=== PATIENT | female | born 1990 | race American Indian/Alaskan Native ===

== ENCOUNTER 2016-12-12 12:21 | Emergency (ER) | payer SELFPAY ==
[~2016-12-12] VITALS: Ht 167.6 cm; Wt 108.9 kg
--- NOTE | 2016-12-12 13:44 | ED Cough/URI ---
General Chief Complaint: Coughing up blood Stated Complaint: SOA COUGHING UP BLOOD Nursing Triage Note: PT CO HAS BRONCHITIS SINCE JUL, HAS STARTED COUGHING UP SOME SPUTUM W SPECKS OF BLOOD, AND 1 BLOOD CLOT. History of Present Illness Time seen by provider: 12:50 Initial Comments Evaluation for cough since July 2016, she was treated 2 weeks ago with a round of prednisone and had no improvement in her symptoms. She has also tried an albuterol inhaler with no improvement. She does smoke cigarettes, however she has decreased significantly and is only smoking 2-3 per day. No history of chronic respiratory problems: Asthma, pneumonia, tuberculosis, COPD, bronchitis. She has a history of seasonal allergies, however they are usually only in the fall when she is in [place]. She recently moved to [place]. Timing/Duration: intermittent Severity/Quality: productive cough (clear sputum, coarse deep), sputum, blood streaked sputum (had one episode yesterday with small amount of bright red blood , and another episode today.) Prior Episodes/Possible Cause: no prior episodes Associated Symptoms: cough Allergies and Home Medications Allergies Coded Allergies: No Known Drug Allergies (Unverified , 12/12/16) Home Medications Azithromycin 250 Mg Tablet, 250 MG PO UD, #6 TAKE 2 TABLETS ON DAY ONE THEN TAKE 1 TABLET DAILY FOR FOUR MORE DAYS Prescribed by: RUPERT CERON on 12/12/16 1514 Constitutional: no symptoms reported, see HPI EENTM: no symptoms reported, see HPI, No dental problems, No nose congestion Respiratory: see HPI, cough, hemoptysis, No short of breath, No wheezing Cardiovascular: no symptoms reported, see HPI Gastrointestinal: no symptoms reported, see HPI Genitourinary: no symptoms reported, see HPI : No Musculoskeletal: no symptoms reported Skin: no symptoms reported, see HPI Psychiatric/Neurological: No Symptoms Reported, See HPI Hematologic/Lymphatic: No Symptoms Reported, See HPI Immunological/Allergic: no symptoms reported All Other Systems Reviewed Negative Unless Noted: Yes Past Ruglqdm-Qkprte-Thdulb Hx Patient Social History Alcohol Use: Denies Use Recreational Drug Use: No Smoking Status: Current Everyday Smoker Recent Foreign Travel: No Contact w/Someone Who Travel: No Recent Infectious Disease Expo: No Recent Hopitalizations: No Reproductive System : No (IMPLANON) Reviewed Nursing Assessment Reviewed/Agree w Nursing PMH: Yes Physical Exam Vital Signs Vital Sign - Last 12Hours 12/12/16 12:25 Temp 97.5 Pulse 99 Resp 18 B/P (MAP) 125/82 Pulse Ox 99 Capillary Refill : Less Than 3 Seconds General Appearance: WD/WN, no apparent distress HEENT: PERRL/EOMI, normal ENT inspection, TMs normal, pharynx normal, other ( clear postnasal drainage) Neck: non-tender, full range of motion, supple, normal inspection, No lymphadenopathy (R), No lymphadenopathy (L) Respiratory: chest non-tender, lungs clear, normal breath sounds, no respiratory distress, no accessory muscle use Cardiovascular: normal peripheral pulses, regular rate, rhythm, no JVD, no murmur Gastrointestinal: normal bowel sounds, non tender, soft, no organomegaly, no pulsatile mass Extremities: normal range of motion, non-tender, normal inspection, no pedal edema, no calf tenderness, normal capillary refill Neurologic/Psychiatric: no motor/sensory deficits, alert, normal mood/affect, oriented x 3 Skin: normal color, warm/dry Lymphatic: no adenopathy Progress/Results/Core Measures Results/Orders Lab Results Laboratory Tests Test 12/12/16 13:40 Range/Units White Blood Count 11.0 4.3-11.0 10^3/uL Red Blood Count 5.14 4.35-5.85 10^6/uL Hemoglobin 14.3 11.5-16.0 G/DL Hematocrit 42 35-52 % Mean Corpuscular Volume 83 80-99 FL Mean Corpuscular Hemoglobin 28 25-34 PG Mean Corpuscular Hemoglobin Concent 34 32-36 G/DL Red Cell Distribution Width 13.9 10.0-14.5 % Platelet Count 384 130-400 10^3/uL Mean Platelet Volume 10.1 7.4-10.4 FL Neutrophils (%) (Auto) 69 42-75 % Lymphocytes (%) (Auto) 25 12-44 % Monocytes (%) (Auto) 4 0-12 % Eosinophils (%) (Auto) 2 0-10 % Basophils (%) (Auto) 0 0-10 % Neutrophils # (Auto) 7.6 1.8-7.8 X 10^3 Lymphocytes # (Auto) 2.7 1.0-4.0 X 10^3 Monocytes # (Auto) 0.5 0.0-1.0 X 10^3 Eosinophils # (Auto) 0.2 0.0-0.3 10^3/uL Basophils # (Auto) 0.0 0.0-0.1 10^3/uL Erythrocyte Sedimentation Rate 14 0-20 MM/HR Sodium Level 139 135-145 MMOL/L Potassium Level 3.4 L 3.6-5.0 MMOL/L Chloride Level 110 H 98-107 MMOL/L Carbon Dioxide Level 19 L 21-32 MMOL/L Anion Gap 10 5-14 MMOL/L Blood Urea Nitrogen 9 7-18 MG/DL Creatinine 0.65 0.60-1.30 MG/DL Estimat Glomerular Filtration Rate > 60 BUN/Creatinine Ratio 14 Glucose Level 102 70-105 MG/DL Calcium Level 8.9 8.5-10.1 MG/DL Total Bilirubin 0.4 0.1-1.0 MG/DL Aspartate Amino Transf (AST/SGOT) 30 5-34 U/L Alanine Aminotransferase (ALT/SGPT) 41 0-55 U/L Alkaline Phosphatase 77 40-136 U/L Total Protein 7.3 6.4-8.2 G/DL Albumin 4.0 3.2-4.5 G/DL My Orders Orders - RUPERT CERON Chest Pa/Lat (2 View) (12/12/16 13:04) Cbc With Automated Diff (12/12/16 13:04) Comprehensive Metabolic Panel (12/12/16 13:04) Erythrocyte Sedimentation Rate (12/12/16 13:04) Sputum Culture (12/12/16 13:04) Ekg Tracing (12/12/16 13:12) Mycoplasma Antibodies (12/12/16 14:05) Vital Signs/I&O Vital Sign - Last 12Hours 12/12/16 12/12/16 12:25 14:54 Temp 97.5 Pulse 99 99 Resp 18 18 B/P (MAP) 125/82 Pulse Ox 99 99 Blood Pressure Mean: 96 Point of Care Testing Urine -Bedside: Negative Progress Note : Time: 12:50 Progress Note Initial evaluation completed, will get labs, chest x-ray and sputum culture. Will reevaluate after that. 1340 labs essentially normal, Mycoplasma and sputum culture pending, atelectasis versus infiltrates in bilateral lung bases. RESULTS discussed with the patient. Recommended treatment with doxycycline, Mucinex and over-the- counter allergy medicine. 1400 patient reports that the doxycycline is going to be too expensive so we will use azithromycin. ECG Initial ECG Impression Date: Dec 12, 2016 Initial ECG Impression Time: 13:25 Initial ECG Rate: 78 Initial ECG Rhythm: Normal Sinus Initial ECG Intervals: Normal Initial ECG Intervals MO 156, QRS 3100, QT 400, QTc 456. [place], PT 35, QRS 84, T 17. Initial ECG Impression: Normal Initial ECG Comparisson: No Previous ECG Available Comment Reviewed EKG with Dr. Schmidt, agreed with interpretation. Diagnostic Imaging Diagonstic Imaging: Xray Plain Films/CT/US/NM/MRI: chest Comments NAME: ALVIN CHILDS [facility] REC#: [id number] PT STATUS: REG ER : 1990 PHYSICIAN: RUPERT CERON ADMIT DATE: 12/12/16/ER Draft Date of Exam:12/12/16 CHEST PA/LAT (2 VIEW) INDICATION: Cough approximately 6 months. EXAMINATION: Two-view chest 12/12/2016 COMPARISON: None. FINDINGS: The heart is unremarkable. The pulmonary vasculature is congested. There are no infiltrates or effusions. There is no pneumothorax. Mild atelectasis versus infiltrate at the lung bases followup recommended. IMPRESSION: 1. Pulmonary vasculature congestion. 2. Mild atelectasis versus infiltrate at the lung bases followup recommended. Dictated on workstation # [id number] Dict: 12/12/16 1319 Trans: 12/12/16 1356 [facility] [id number] Interpreted by: CINTIA BAEZ MD Electronically signed by: Reviewed: Reviewed by Me Departure Impression Impression: Primary Impression: Cough in adult Additional Impression: Bronchitis Disposition: 01 HOME, SELF-CARE Condition: Improved Departure-Patient Inst. Decision time for Depature: 13:30 Referrals: NO,LOCAL PHYSICIAN (PCP/Family) Primary Care Physician Patient Instructions: Acute Bronchitis, Adult (DC), Cough, Adult (DC), Seasonal Allergies (DC) Add. Discharge Instructions: Increase water intake. Yjpw-ory-clznsdj allergy medicine such as Claritin or Zyrtec take 1 daily. Mucinex one every 12 hours. Complete full prescription of antibiotics. Establish care at [facility] and follow-up in approximately 5-10 days. Return to emergency department for shortness of air, difficulty breathing, chest pain, fevers greater than 101, or new complaints. All discharge instructions reviewed with patient and/or family. Voiced understanding. Scripts Azithromycin (Azithromycin) 250 Mg Tablet 250 MG PO UD, #6 TAB TAKE 2 TABLETS ON DAY ONE THEN TAKE 1 TABLET DAILY FOR FOUR MORE DAYS Prov: RUPERT CERON 12/12/16 Copy Copies To 1: GODWIN EBTHEA MD, AMY ARNP Dec 12, 2016 13:44
[2016-12-12 13:52] LABS: BASOPHILS % (AUTO) 0 % (0-10); EOSINOPHILS # (AUTO) 0.2 10^3/uL (0.0-0.3); EOSINOPHILS % (AUTO) 2 % (0-10); LYMPHOCYTES # (AUTO) 2.7 X 10^3 (1.0-4.0); LYMPHOCYTES % (AUTO) 25 % (12-44); MEAN CORPUSCULAR HEMOGLOBIN 28 PG (25-34); MEAN CORPUSCULAR HGB CONC 34 G/DL (32-36); MEAN CORPUSCULAR VOLUME 83 FL (80-99); MEAN PLATELET VOLUME 10.1 FL (7.4-10.4); MONOCYTES # (AUTO) 0.5 X 10^3 (0.0-1.0); MONOCYTES % (AUTO) 4 % (0-12); NEUTROPHILS # (AUTO) 7.6 X 10^3 (1.8-7.8); NEUTROPHILS % (AUTO) 69 % (42-75); PLATELET COUNT 384 10^3/uL (130-400); RED BLOOD COUNT 5.14 10^6/uL (4.35-5.85); RED CELL DISTRIBUTION WIDTH 13.9 % (10.0-14.5)
--- NOTE | 2016-12-12 13:56 | Diagnostic Imaging Report ---
INDICATION: Cough approximately 6 months. EXAMINATION: Two-view chest 12/12/2016 COMPARISON: None. FINDINGS: The heart is unremarkable. The pulmonary vasculature is congested. There are no infiltrates or effusions. There is no pneumothorax. Mild atelectasis versus infiltrate at the lung bases followup recommended. IMPRESSION: 1. Pulmonary vasculature congestion. 2. Mild atelectasis versus infiltrate at the lung bases followup recommended. Dictated by: Dictated on workstation # [id number]
[2016-12-12 14:09] LABS: ALANINE AMINOTRANSFERASE 41 U/L (0-55); ANION GAP 10 MMOL/L (5-14); ASPARTATE AMINO TRANSFERASE 30 U/L (5-34); BILIRUBIN,TOTAL 0.4 MG/DL (0.1-1.0); BLOOD UREA NITROGEN 9 MG/DL (7-18); BUN/CREATININE RATIO 14; CALCIUM 8.9 MG/DL (8.5-10.1); CARBON DIOXIDE 19 MMOL/L (21-32); CHLORIDE 110 MMOL/L (98-107); CREATININE SERUM 0.65 MG/DL (0.60-1.30); GFR ESTIMATED > 60; GLUCOSE 102 MG/DL (70-105); POTASSIUM 3.4 MMOL/L (3.6-5.0); SODIUM 139 MMOL/L (135-145); TOTAL PROTEIN 7.3 G/DL (6.4-8.2)
[2016-12-12] MEDS ORDERED: MINO100T10 PO (14:15)
[2016-12-12 14:34] LABS: ERYTHROCYTE SEDIMENTATION RATE 14 MM/HR (0-20)
[2016-12-12] MEDS ORDERED: CLAR-19 PO (14:45)
[2016-12-12 14:54] VITALS: BP 125/82
[2016-12-12] MEDS ORDERED: AZIT250T5 PO (15:14)
[2016-12-14 14:33] LABS: MYCOPLASMA IGM IFA ANTIBODY <1:10 (<1:10)
== END 2016-12-12 14:58 | disposition home or self-care (01) ==
LOC: ER 12:26
DX: J40 Bronchitis, not specified as acute or chronic (principal); F17.210 Nicotine dependence, cigarettes, uncomplicated
CPT/HCPCS: 36415; 71020; 80053; 84703; 85025; 85652; 86738; 87070; 87205; 93005

== ENCOUNTER 2017-02-07 23:16 | Emergency (ER) | payer SELFPAY ==
[~2017-02-07] VITALS: Ht 167.6 cm; Wt 108.9 kg
[~2017-02-07 23:16] MED LIST: AZIT250T5 PO; CLAR-19 PO; MINO100T10 PO
[2017-02-08 00:12] LABS: BASOPHILS % (AUTO) 0 % (0-10); EOSINOPHILS # (AUTO) 0.3 10^3/uL (0.0-0.3); EOSINOPHILS % (AUTO) 2 % (0-10); LYMPHOCYTES # (AUTO) 4.4 X 10^3 (1.0-4.0); LYMPHOCYTES % (AUTO) 36 % (12-44); MEAN CORPUSCULAR HEMOGLOBIN 28 PG (25-34); MEAN CORPUSCULAR HGB CONC 33 G/DL (32-36); MEAN CORPUSCULAR VOLUME 84 FL (80-99); MEAN PLATELET VOLUME 10.1 FL (7.4-10.4); MONOCYTES # (AUTO) 0.6 X 10^3 (0.0-1.0); MONOCYTES % (AUTO) 5 % (0-12); NEUTROPHILS % (AUTO) 57 % (42-75); PLATELET COUNT 347 10^3/uL (130-400); RED BLOOD COUNT 4.95 10^6/uL (4.35-5.85); RED CELL DISTRIBUTION WIDTH 13.5 % (10.0-14.5); WHITE BLOOD COUNT 12.3 10^3/uL (4.3-11.0)
[2017-02-08 00:22] LABS: PROTHROMBIN TIME PATIENT 12.4 SEC (12.2-14.7)
[2017-02-08 00:38] LABS: ALANINE AMINOTRANSFERASE 29 U/L (0-55); ANION GAP 9 MMOL/L (5-14); ASPARTATE AMINO TRANSFERASE 21 U/L (5-34); BILIRUBIN,TOTAL 0.3 MG/DL (0.1-1.0); BLOOD UREA NITROGEN 11 MG/DL (7-18); BUN/CREATININE RATIO 14; CALCIUM 9.2 MG/DL (8.5-10.1); CARBON DIOXIDE 22 MMOL/L (21-32); CHLORIDE 108 MMOL/L (98-107); CREATININE SERUM 0.79 MG/DL (0.60-1.30); GFR ESTIMATED > 60; GLUCOSE 101 MG/DL (70-105); MAGNESIUM 2.2 MG/DL (1.8-2.4); POTASSIUM 3.5 MMOL/L (3.6-5.0); SODIUM 139 MMOL/L (135-145); TOTAL PROTEIN 7.3 GM/DL (6.4-8.2)
[2017-02-08 00:46] LABS: MYOGLOBIN SERUM 28.6 NG/ML (10.0-92.0)
--- NOTE | 2017-02-08 01:52 | ED Neurological Problem ---
General Chief Complaint: Neurological Problems Stated Complaint: TINGLING ON L SIDE Nursing Triage Note: left arm,neck,shoulder numbness Nursing Sepsis Screen: No Definite Risk Source: patient Exam Limitations: no limitations History of Present Illness Time seen by provider: 23:44 Initial Comments This 26-year-old young lady presents to the emergency room with vague symptoms of cramping sensation in the left chest radiating to the neck and back of the shoulder. She also developed paresthesias in the left arm. She has had this discomfort in the left chest off and on since 2013. However, the paresthesias are new. Symptoms started at 21:45 after running and walking fast with her family. She also complains of a persistent left frontal headache 1 month. Patient was examined at 23:55 and no measurable neurologic deficits were observed. Patient denies any weakness. Allergies and Home Medications Allergies Coded Allergies: No Known Drug Allergies (Unverified , 12/12/16) Home Medications No Active Prescriptions or Reported Meds Constitutional: no symptoms reported Eyes: No Symptoms Reported Ears, Nose, Mouth, Throat: no symptoms reported Respiratory: no symptoms reported Cardiovascular: no symptoms reported Gastrointestinal: no symptoms reported Genitourinary: no symptoms reported : No (Nexplanon) Musculoskeletal: see HPI Skin: no symptoms reported Psychiatric/Neurological: See HPI Endocrine: No Symptoms Reported Past Bygtokr-Hsetel-Swyxrd Hx Patient Social History Alcohol Use: Denies Use Recreational Drug Use: No Smoking Status: Former Smoker Type Used: Cigarettes 2nd Hand Smoke Exposure: No Recent Foreign Travel: No Contact w/Someone Who Travel: No Recent Infectious Disease Expo: No Recent Hopitalizations: No Immunizations Up To Date Tetanus Booster (TDap): Unknown Seasonal Allergies Seasonal Allergies: No Surgeries HX Surgeries: Yes Surgeries: Section, Gallbladder Respiratory Hx Respiratory Disorders: Yes Respiratory Disorders: Asthma Cardiovascular Hx Cardiac Disorders: No Neurological Hx Neurological Disorders: No Reproductive System : No Genitourinary Hx Genitourinary Disorders: No Gastrointestinal Hx Gastrointestinal Disorders: No Musculoskeletal Hx Musculoskeletal Disorders: Yes (chronic chest spasms) Endocrine Hx Endocrine Disorders: No HEENT HX ENT Disorders: No Cancer Hx Cancer: No Psychosocial Hx Psychiatric Problems: No Integumentary HX Skin/Integumentary Disorder: No Physical Exam Vital Signs Vital Sign - Last 12Hours 02/07/17 23:26 Temp 97.1 Pulse 79 Resp 18 B/P (MAP) 139/40 Pulse Ox 96 O2 Delivery Room Air Capillary Refill : Less Than 3 Seconds General Appearance: WD/WN, no apparent distress, obese HEENT: PERRL/EOMI, normal ENT inspection Neck: supple, normal inspection, other (left posterior musculature tender to palpation) Respiratory: lungs clear, normal breath sounds, no respiratory distress, no accessory muscle use, other (anterior chest wall tender to palpation) Cardiovascular: regular rate, rhythm, no edema, no murmur Gastrointestinal: normal bowel sounds, non tender, soft Extremities: non-tender, normal inspection, no pedal edema, other (tenderness to palpation of the left shoulder) 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, no motor/sensory deficits, alert, normal mood/affect, oriented x 3 Crainal Nerves: normal hearing, normal speech, PERRL Coordination/Gait: normal finger to nose (normal heel to isbell), normal gait Motor/Sensory: no motor deficit, no sensory deficit Skin: normal color, warm/dry, No rash Progress/Results/Core Measures Results/Orders Lab Results Laboratory Tests Test 02/08/17 00:05 Range/Units White Blood Count 12.3 H 4.3-11.0 10^3/uL Red Blood Count 4.95 4.35-5.85 10^6/uL Hemoglobin 13.9 11.5-16.0 G/DL Hematocrit 42 35-52 % Mean Corpuscular Volume 84 80-99 FL Mean Corpuscular Hemoglobin 28 25-34 PG Mean Corpuscular Hemoglobin Concent 33 32-36 G/DL Red Cell Distribution Width 13.5 10.0-14.5 % Platelet Count 347 130-400 10^3/uL Mean Platelet Volume 10.1 7.4-10.4 FL Neutrophils (%) (Auto) 57 42-75 % Lymphocytes (%) (Auto) 36 12-44 % Monocytes (%) (Auto) 5 0-12 % Eosinophils (%) (Auto) 2 0-10 % Basophils (%) (Auto) 0 0-10 % Neutrophils # (Auto) 7.0 1.8-7.8 X 10^3 Lymphocytes # (Auto) 4.4 H 1.0-4.0 X 10^3 Monocytes # (Auto) 0.6 0.0-1.0 X 10^3 Eosinophils # (Auto) 0.3 0.0-0.3 10^3/uL Basophils # (Auto) 0.0 0.0-0.1 10^3/uL Prothrombin Time 12.4 12.2-14.7 SEC INR Comment 1.0 0.8-1.4 Activated Partial Thromboplast Time 31 24-35 SEC Sodium Level 139 135-145 MMOL/L Potassium Level 3.5 L 3.6-5.0 MMOL/L Chloride Level 108 H 98-107 MMOL/L Carbon Dioxide Level 22 21-32 MMOL/L Anion Gap 9 5-14 MMOL/L Blood Urea Nitrogen 11 7-18 MG/DL Creatinine 0.79 0.60-1.30 MG/DL Estimat Glomerular Filtration Rate > 60 BUN/Creatinine Ratio 14 Glucose Level 101 70-105 MG/DL Calcium Level 9.2 8.5-10.1 MG/DL Magnesium Level 2.2 1.8-2.4 MG/DL Total Bilirubin 0.3 0.1-1.0 MG/DL Aspartate Amino Transf (AST/SGOT) 21 5-34 U/L Alanine Aminotransferase (ALT/SGPT) 29 0-55 U/L Alkaline Phosphatase 76 40-136 U/L Myoglobin 28.6 10.0-92.0 NG/ML Troponin I < 0.30 <0.30 NG/ML Total Protein 7.3 6.4-8.2 GM/DL Albumin 4.0 3.2-4.5 GM/DL Serum Test, Qualitative NEGATIVE NEGATIVE My Orders Orders - OG LANE MD Cbc With Automated Diff (02/07/17 23:57) Magnesium (02/07/17 23:57) Ekg Tracing (02/07/17 23:57) Cardiac Profile 1 (02/07/17 23:57) Comprehensive Metabolic Panel (02/07/17 23:57) Myoglobin Serum (02/07/17 23:57) Protime With Inr (02/07/17 23:57) Partial Thromboplastin Time (02/07/17 23:57) O2 (02/07/17 23:57) Monitor-Rhythm Ecg Trace Only (02/07/17 23:57) Saline Lock/Iv-Start (02/07/17 23:57) Hcg,Qualitative Serum (02/07/17 23:57) Ct Head/Cervical Spine Wo (02/08/17 00:41) Chest Pa/Lat (2 View) (02/08/17 00:41) Vital Signs/I&O Vital Sign - Last 12Hours 02/07/17 02/08/17 02/08/17 23:26 00:00 01:57 Temp 97.1 97.1 Pulse 79 68 Resp 18 23 B/P (MAP) 139/40 Pulse Ox 96 96 99 O2 Delivery Room Air Room Air Room Air Blood Pressure Mean: 73 ECG Initial ECG Impression Date: Feb 08, 2017 Initial ECG Impression Time: 00:15 Initial ECG Rate: 62 Initial ECG Rhythm: Normal Sinus Initial ECG Impression: Normal Comment Normal sinus rhythm with no ST elevation or depression. No abnormal intervals or axis deviation. Diagnostic Imaging Diagonstic Imaging: Xray Plain Films/CT/US/NM/MRI: chest Comments Chest x-ray viewed by me. Report not yet available. No acute abnormalities appreciated. Diagonstic Imaging: CT Plain Films/CT/US/NM/MRI: c-spine, head Comments CT head and C-spine viewed by me and [employer] report reviewed. No acute abnormalities appreciated. Departure Impression Impression: Primary Impression: Atypical chest pain Additional Impressions: Paresthesia of left upper limb Headache Qualified Codes: R51 - Headache Disposition: 01 HOME, SELF-CARE Condition: Stable Departure-Patient Inst. Decision time for Depature: 01:51 Referrals: NO,LOCAL PHYSICIAN (PCP/Family) Primary Care Physician Patient Instructions: Headache, Adult (DC), Paresthesias (DC) Add. Discharge Instructions: You may take Tylenol and/or ibuprofen for your pain. Follow-up with your primary care provider. Return to the ER if symptoms worsen. All discharge instructions reviewed with patient and/or family. Voiced understanding. Scripts No Active Prescriptions or Reported Meds OG LANE MD Feb 08, 2017 01:52
[2017-02-08 01:57] VITALS: BP 129/81
--- NOTE | 2017-02-08 08:02 | Diagnostic Imaging Report ---
PROCEDURE: CT head and CT cervical spine without contrast. TECHNIQUE: Multiple contiguous axial images were obtained through the brain and cervical spine without the use of intravenous contrast. Sagittal and coronal reformations through the cervical spine were then performed. INDICATION: Left arm numbness, neck and shoulder numbness and pain. No priors. CT head: There is no intracranial hemorrhage, hydrocephalus, edema, mass, or mass effect. Incidental ventricular variant with cavum septum pellucidum noted. The ventricular system nondilated and nondisplaced. The orbits, sinuses, and calvarium were within normal limits. No evidence for elevation to the intracranial pressures. CT cervical spine: The neck is held in flexion. Given positioning, the alignment is unremarkable in the reconstruction views. Cervical vertebral body statures are normal and no acute or suspicious endplate irregularity. No substantial degree of canal stenosis. No fracture or paravertebral hemorrhage. Visualized pulmonary apices and thoracic inlet unremarkable. IMPRESSION: CT head: Negative. CT cervical spine: Negative. I agree with the preliminary. Dictated by: Dictated on workstation # [id number]
--- NOTE | 2017-02-08 08:17 | Diagnostic Imaging Report ---
INDICATION: Left arm, neck, and shoulder numbness. COMPARISON: 12/12/2016. FINDINGS: 2 views of the chest are obtained. Heart size is normal. The pulmonary vessels appear unremarkable. There is no pneumothorax, mediastinal widening, or pleural fluid demonstrated. The lungs are clear. No acute osseous abnormality is demonstrated. IMPRESSION: No radiographic evidence of an acute cardiopulmonary process. No significant interval change from the prior study. Dictated by: Dictated on workstation # [id number]
== END 2017-02-08 01:56 | disposition home or self-care (01) ==
LOC: EDUNIT# 23:16 → ER 23:18
DX: R07.89 Other chest pain (principal); R20.2 Paresthesia of skin; R51 Headache; J45.909 Unspecified asthma, uncomplicated; Z87.891 Personal history of nicotine dependence; Z87.59 Personal history of other complications of pregnancy, childbirth and the puerperium
CPT/HCPCS: 36415; 70450; 71020; 72125; 80053; 83735; 83874; 84484; 84703; 85025; 85610; 85730; 93005; 93041

== ENCOUNTER 2017-07-15 20:38 | Emergency (ER) | payer SELFPAY ==
[~2017-07-15] VITALS: Ht 167.6 cm; Wt 108.9 kg
[~2017-07-15 20:38] MED LIST changes: +AZIT250T12 PO; -AZIT250T5 PO
[2017-07-15] MEDS ORDERED: RT-ALBUTEROL/IPRATROPIUM 3 ML (DUONEB) VIAL INH ONE (21:00)
--- NOTE | 2017-07-15 21:04 | ED Respiratory ---
General Chief Complaint: Chest Wall/Rib Pain Stated Complaint: CHEST PAIN,UPPER BACK PAIN X1 DAY Nursing Triage Note: CHEST WALL PAIN, WORSE WITH DEEP INSPIRATION. History of Present Illness Time seen by provider: 20:45 Initial Comments 27-year-old female presents for dyspnea, chest wall pain, and neck pain. She reports her symptoms started earlier today. She tried ibuprofen at 1800 with no resolution of her symptoms. She denies a history of asthma, however she has been seen here before for chest wall pain. She does report doing a new aerobic exercise yesterday, similar to jazzercise. She denies an injury while doing it, but reports it's more physical activity than she's done recently. She denies a cough, fever or recent illness. Denies any tobacco use or exposure, they do not have the fireplace at home. Timing/Duration: this morning Severity: mild Prior Episodes/Possible Cause: occasional episodes Modifying Factors: Improves With Rest Associated Symptoms: chest pain/soreness, No cough, No fever/chills, No headache, No lightheadedness, muscle aches, shortness of breath, No wheezing Allergies and Home Medications Allergies Coded Allergies: No Known Drug Allergies (Unverified , 12/12/16) Home Medications No Active Prescriptions or Reported Meds Constitutional: no symptoms reported, see HPI Respiratory: see HPI, short of breath Cardiovascular: see HPI, chest pain All Other Systems Reviewed Negative Unless Noted: Yes Past Iapipwd-Ymojmr-Laeffr Hx Patient Social History Alcohol Use: Rarely Uses Recreational Drug Use: No Smoking Status: Never a Smoker Type Used: Cigarettes Former Smoker, Quit: Dec 03, 2016 2nd Hand Smoke Exposure: No Recent Foreign Travel: No Contact w/Someone Who Travel: No Recent Infectious Disease Expo: No Recent Hopitalizations: No Immunizations Up To Date Tetanus Booster (TDap): Unknown PED Vaccines UTD: Yes Seasonal Allergies Seasonal Allergies: No Surgeries History of Surgeries: Yes Surgeries: Section, Gallbladder Respiratory History of Respiratory Disorde: Yes Respiratory Disorders: Asthma Cardiovascular History of Cardiac Disorders: No Neurological History of Neurological Disord: No Reproductive System : No Genitourinary History of Genitourinary Disor: No Gastrointestinal History of Gastrointestinal Di: No Musculoskeletal History of Musculoskeletal Dis: Yes (chronic chest spasms) Endocrine History of Endocrine Disorders: No HEENT History of HEENT Disorders: No Cancer History of Cancer: No Psychosocial History of Psychiatric Problem: No Integumentary History of Skin or Integumenta: No Blood Transfusions History of Blood Disorders: No Reviewed Nursing Assessment Reviewed/Agree w Nursing PMH: Yes Physical Exam Vital Signs Vital Sign - Last 12Hours 07/15/17 20:40 Temp 98.3 Pulse 73 Resp 16 B/P (MAP) 124/83 (97) Pulse Ox 100 O2 Delivery Room Air Capillary Refill : Less Than 3 Seconds General Appearance: WD/WN, mild distress Eyes: Bilateral Eye Normal Inspection, Bilateral Eye PERRL, Bilateral Eye EOMI HEENT: PERRL/EOMI, normal ENT inspection, TMs normal, pharynx normal Neck: full range of motion, supple, normal inspection, No lymphadenopathy (R), No lymphadenopathy (L), tender lateral (bilateral trapezius), other (no increased pain with trapezius and sternomastoid strength testing, power V/V bilaterally.) Respiratory: lungs clear, no respiratory distress, decreased breath sounds, other (tenderness at the anterior chest wall. More painful with deep inspiration ) Cardiovascular: normal peripheral pulses, regular rate, rhythm, no murmur Gastrointestinal: normal bowel sounds, non tender, soft Extremities: normal range of motion, non-tender, normal inspection, normal capillary refill Neurologic/Psychiatric: no motor/sensory deficits, alert, normal mood/affect, oriented x 3 Skin: normal color, warm/dry Progress/Results/Core Measures Suspected Sepsis Recent Fever Within 48 Hours: No Infection Criteria Present: None New/Unexplained Altered Menta: No Sepsis Screen: No Definite Risk Sepsis Diagnosis: SIRS Temperature:98.3 Pulse: 73 Respiratory Rate: 16 Blood Pressure 124 /83 Mean: 97 Results/Orders My Orders Orders - RUPERT CERON Albuterol/Ipra Inhalation Soln (Duoneb I (07/15/17 21:00) Svn Sm Volume Nebulizer Rt-Rfs (07/15/17 20:54) Ekg Tracing (07/15/17 20:54) Chest Pa/Lat (2 View) (07/15/17 21:21) Urine Bedside (07/15/17 21:23) Acetaminophen Tablet (Tylenol Tablet) (07/15/17 21:24) Cyclobenzaprine Tablet (Flexeril Tablet) (07/15/17 21:24) Rx-Albuterol Inhaler (Rx-Proair) (07/15/17 21:58) Medications Given in ED Current Medications Medications Dose Ordered Sig/Betzy Route Start Time Stop Time Status Last Admin Dose Admin Albuterol/ Ipratropium 3 ml ONCE ONCE INH 07/15/17 21:00 07/15/17 21:01 DC 07/15/17 21:07 3 ML Vital Signs/I&O Vital Sign - Last 12Hours 07/15/17 07/15/17 07/15/17 20:40 21:08 22:07 Temp 98.3 98.1 Pulse 73 70 Resp 16 16 B/P (MAP) 124/83 (97) Pulse Ox 100 98 100 O2 Delivery Room Air Room Air Room Air Capillary Refill : Less Than 3 Seconds Blood Pressure Mean: 97 Progress Note : Time: 20:45 Progress Note Initial evaluation completed, recommended EKG and DuoNeb treatment. Will continue to monitor. 2114 patient reports improvement in her symptoms after the DuoNeb treatment. Will obtain chest x-ray and reevaluate. 2144 patient reports continued improvement in symptoms. Chest x-ray results reviewed with her. Charge planning and return precautions reviewed, all questions answered. ECG Initial ECG Impression Date: Jul 15, 2017 Initial ECG Impression Time: 21:00 Initial ECG Rate: 64 Initial ECG Rhythm: Normal Sinus Initial ECG Intervals: Normal Initial ECG Intervals MI 156, QRS 108, QT 142, QTC 425. [place] P 35, QRS 39, T 23. Initial ECG Impression: Normal Comment EKG reviewed with Dr. Michaud, concurred with interpretation. Diagnostic Imaging Diagonstic Imaging: Xray Plain Films/CT/US/NM/MRI: chest Comments No acute abnormality seen. Will be over read by radiology Reviewed: Reviewed by Me Departure Impression Impression: Primary Impression: Acute chest wall pain Additional Impression: Costochondritis, acute Disposition: HOME, SELF-CARE Condition: Improved Departure-Patient Inst. Decision time for Depature: 22:00 Referrals: NO,LOCAL PHYSICIAN (PCP/Family) Primary Care Physician Patient Instructions: Chest Pain That Is Not Caused by the Heart (DC), Costochondritis (DC) Add. Discharge Instructions: Alternate between Tylenol 650 mg and ibuprofen 800 mg every 4 hours for pain. Use inhaler every 4 hours as needed for shortness breath. Establish care with a primary care provider, follow-up if symptoms are not improving. Return to emergency department if difficulty breathing, fever greater than 101 not Tylenol or ibuprofen, or new problems. All discharge instructions reviewed with patient and/or family. Voiced understanding. Scripts No Active Prescriptions or Reported Meds RUPERT CERON Jul 15, 2017 21:04
[2017-07-15] MEDS ORDERED: ACETAMINOPHEN 500 MG TAB (TYLENOL) PO STA (21:24)
[2017-07-15] MEDS ORDERED: CYCLOBENZAPRINE 10 MG (FLEXERIL) TAB PO STA (21:24)
[2017-07-15] MEDS ORDERED: RX-ALBUTEROL INHALER (PROAIR) 8 GM IH STA (21:58)
[2017-07-15 22:07] VITALS: BP 122/78
--- NOTE | 2017-07-15 22:15 | Diagnostic Imaging Report ---
EXAMINATION: PA and lateral chest. INDICATION: Chest wall pain with inspiration. COMPARISON: Prior study from 02/08/2017. FINDINGS: Interstitial markings appear prominent. The patient also has flattened diaphragm suggesting air trapping. Correlation with any known history of asthma appreciated. There is no focal alveolar infiltrate. There is no effusion. There is no pneumothorax. Heart size and mediastinal contours appear appropriate. There is no evidence of an osseous abnormality. IMPRESSION: Prominent central interstitial markings and hyperinflation. Correlation as to any know history of asthma or smoking appreciated. There is no focal alveolar infiltrate or effusion. Pulmonary vascularity appears normal. Dictated by: Dictated on workstation # [id number]
== END 2017-07-15 22:07 | disposition home or self-care (01) ==
LOC: EDUNIT# 20:38 → ER 20:40
DX: R07.89 Other chest pain (principal); M94.0 Chondrocostal junction syndrome [Tietze]; J45.909 Unspecified asthma, uncomplicated; Z87.891 Personal history of nicotine dependence; Z87.59 Personal history of other complications of pregnancy, childbirth and the puerperium
CPT/HCPCS: 71046; 84703; 93005; 94640

== ENCOUNTER → 2018-01-19 | Outpatient (CLI) | payer OTHER ==
[~2018-01-19] MED LIST changes: +HYDR25CA PO
--- NOTE | 2018-01-19 16:49 | Diagnostic Imaging Report ---
PATIENT HISTORY: PELVIC PAIN. TECHNIQUE: Transabdominal and transvaginal ultrasound of the pelvis. COMPARISON: None. FINDINGS: The uterus appears retroflexed, but normal in size. No focal uterine masses are seen. The endometrium is normal in thickness measuring 3 mm. No significant free fluid is seen. The ovaries are not seen on transabdominal or transvaginal ultrasound bilaterally. There is significant bowel gas shadowing. IMPRESSION: 1. Retroflexed uterus with no uterine masses seen. 2. The ovaries are not seen bilaterally. Dictated by: Dictated on workstation # [id number]
== END ==
LOC: RAD 14:37
PROVIDERS: ATTEND Nurse Practitioner Family
DX: N85.4 Malposition of uterus (principal)
CPT/HCPCS: 76830; 76856

== ENCOUNTER 2018-01-21 18:43 | Emergency (ER) | payer OTHER ==
[~2018-01-21] VITALS: Ht 167.6 cm; Wt 111.1 kg
[~2018-01-21 18:43] MED LIST changes: -HYDR25CA PO
[2018-01-21 19:46] LABS: BASOPHILS % (AUTO) 0 % (0-10); EOSINOPHILS # (AUTO) 0.4 10^3/uL (0.0-0.3); EOSINOPHILS % (AUTO) 4 % (0-10); HEMATOCRIT 43 % (35-52); HEMOGLOBIN 15.2 G/DL (11.5-16.0); LYMPHOCYTES # (AUTO) 3.1 X 10^3 (1.0-4.0); LYMPHOCYTES % (AUTO) 31 % (12-44); MEAN CORPUSCULAR HEMOGLOBIN 31 PG (25-34); MEAN CORPUSCULAR HGB CONC 36 G/DL (32-36); MEAN CORPUSCULAR VOLUME 85 FL (80-99); MEAN PLATELET VOLUME 10.5 FL (7.4-10.4); MONOCYTES # (AUTO) 0.5 X 10^3 (0.0-1.0); MONOCYTES % (AUTO) 5 % (0-12); NEUTROPHILS # (AUTO) 6.1 X 10^3 (1.8-7.8); NEUTROPHILS % (AUTO) 60 % (42-75); PLATELET COUNT 357 10^3/uL (130-400); RED BLOOD COUNT 4.99 10^6/uL (4.35-5.85); RED CELL DISTRIBUTION WIDTH 12.9 % (10.0-14.5); WHITE BLOOD COUNT 10.1 10^3/uL (4.3-11.0)
[2018-01-21 20:05] LABS: FIBRIN DEGRADATION PRODUCTS 0.43 UG/ML (0.00-0.49); PROTHROMBIN TIME PATIENT 12.9 SEC (12.2-14.7)
[2018-01-21 20:07] LABS: ALANINE AMINOTRANSFERASE 31 U/L (0-55); ALBUMIN 4.1 GM/DL (3.2-4.5); ALKALINE PHOSPHATASE 68 U/L (40-136); BILIRUBIN,TOTAL 0.3 MG/DL (0.1-1.0); BUN/CREATININE RATIO 15; CALCIUM 8.9 MG/DL (8.5-10.1); CARBON DIOXIDE 22 MMOL/L (21-32); CHLORIDE 109 MMOL/L (98-107); CREATININE SERUM 0.74 MG/DL (0.60-1.30); GFR ESTIMATED > 60; GLUCOSE 103 MG/DL (70-105); POTASSIUM 3.8 MMOL/L (3.6-5.0); SODIUM 140 MMOL/L (135-145); TOTAL PROTEIN 7.1 GM/DL (6.4-8.2)
--- NOTE | 2018-01-21 20:12 | Diagnostic Imaging Report ---
INDICATION: Chest pain and pressure. COMPARISON: 07/15/2017. EXAMINATION: Frontal and lateral views of the chest were obtained. FINDINGS: Clear lungs, bilaterally. The heart is normal. There is no pneumothorax. Osseous structures are age-appropriate. IMPRESSION: Negative chest. Dictated by: Dictated on workstation # [id number]
[2018-01-21] MEDS ORDERED: hydrOXYzine (ATARAX) 10 MG TAB PO ONE (20:30)
--- NOTE | 2018-01-21 20:32 | ED Respiratory ---
General Chief Complaint: Respiratory Problems Stated Complaint: SOB Nursing Triage Note: PT PRESENTS TO ER WITH COMPLAINT OF SOB. PT STATES THIS IS HER THIRD TIME IN ER WITH THIS COMPLAINT, AND DOES NOT KNOW WHAT IS THE CAUSE. STATES THE SOB IS EVERY OTHER DAY. Source: patient Exam Limitations: no limitations History of Present Illness Date Seen by Provider: Jan 21, 2018 Time Seen by Provider: 19:00 Initial Comments Patient is 27-year-old female who presents to the emergency room with complaints of shortness of breath her entire life. She reports that she's been seen multiple times at multiple facilities for this and they cannot determine the cause. She states that she is short of breath every other day. She states that she's been under a lot of stress and she has a history of untreated anxiety. Timing/Duration: intermittent Prior Episodes/Possible Cause: chronic episodes Associated Symptoms: No chest pain/soreness, No cough, No fever/chills, No lightheadedness; shortness of breath; No sore throat, No wheezing Allergies and Home Medications Allergies Coded Allergies: No Known Drug Allergies (Unverified , 12/12/16) Home Medications Hydroxyzine Pamoate 25 Mg Capsule, 25 MG PO Q6H PRN for ANXIETY Prescribed by: GAURAV RICHARDSON on 01/21/182034 Patient Home Medication List Home Medication List Reviewed: Yes Review of Systems Constitutional: see HPI; No chills, No diaphoresis, No dizziness, No fever Respiratory: see HPI; No cough, No dyspnea on exertion, No orthopnea, No phlegm ; short of breath; No stridor, No wheezing Cardiovascular: see HPI; No chest pain, No edema, No Hx of Intervention, No palpitations, No syncope Psychiatric/Neurological: See HPI, Anxiety, Emotional Problems (stress) Hematologic/Lymphatic: Denies Blood Clots, Denies Easy Bleeding Immunological/Allergic: denies grass allergy All Other Systems Reviewed Negative Unless Noted: Yes Past Mpvhkij-Hiajtg-Zccjfz Hx Past Med/Social Hx: Reviewed Nursing Past Med/Soc Hx Patient Social History Alcohol Use: Denies Use Recreational Drug Use: No Smoking Status: Former Smoker Type Used: Cigarettes Former Smoker, Quit: Dec 03, 2016 2nd Hand Smoke Exposure: No Recent Foreign Travel: No Contact w/Someone Who Travel: No Recent Infectious Disease Expo: No Recent Hopitalizations: No Immunizations Up To Date Tetanus Booster (TDap): Unknown PED Vaccines UTD: Yes Seasonal Allergies Seasonal Allergies: No Past Medical History Surgeries: Yes Section, Gallbladder Respiratory: Yes Asthma Cardiac: No Neurological: No Genitourinary: No Gastrointestinal: No Musculoskeletal: Yes (chronic chest spasms) Endocrine: No HEENT: No Cancer: No Psychosocial: No Integumentary: No Blood Disorders: No Family Medical History Reviewed Nursing Family Hx Physical Exam Vital Signs - First Documented 01/21/18 18:55 Temp 99.4 Pulse 84 Resp 28 B/P (MAP) 116/73 (87) Pulse Ox 99 O2 Delivery Room Air Capillary Refill : Less Than 3 Seconds Height: 5'6.00" Weight: 245lbs. oz. 111.472414jh; BMI Method:Stated General Appearance: WD/WN, no apparent distress Respiratory: chest non-tender, lungs clear, normal breath sounds, no respiratory distress, no accessory muscle use Cardiovascular: regular rate, rhythm, no edema, no gallop, no JVD, no murmur Neurologic/Psychiatric: alert, normal mood/affect, oriented x 3 Skin: normal color, warm/dry Progress/Results/Core Measures Suspected Sepsis Recent Fever Within 48 Hours: No Infection Criteria Present: None New/Unexplained Altered Menta: No Sepsis Screen: No Definite Risk SIRS Temperature:99.4 Pulse: 84 Respiratory Rate: 28 Laboratory Tests 01/21/18 19:35: White Blood Count 10.1 Blood Pressure 116 /73 Mean: 87 Laboratory Tests 01/21/18 19:35: Creatinine 0.74, INR Comment 1.0, Platelet Count 357, Total Bilirubin 0.3 Results/Orders Lab Results Laboratory Tests Test 01/21/18 19:35 Range/Units White Blood Count 10.1 4.3-11.0 10^3/uL Red Blood Count 4.99 4.35-5.85 10^6/uL Hemoglobin 15.2 11.5-16.0 G/DL Hematocrit 43 35-52 % Mean Corpuscular Volume 85 80-99 FL Mean Corpuscular Hemoglobin 31 25-34 PG Mean Corpuscular Hemoglobin Concent 36 32-36 G/DL Red Cell Distribution Width 12.9 10.0-14.5 % Platelet Count 357 130-400 10^3/uL Mean Platelet Volume 10.5 H 7.4-10.4 FL Neutrophils (%) (Auto) 60 42-75 % Lymphocytes (%) (Auto) 31 12-44 % Monocytes (%) (Auto) 5 0-12 % Eosinophils (%) (Auto) 4 0-10 % Basophils (%) (Auto) 0 0-10 % Neutrophils # (Auto) 6.1 1.8-7.8 X 10^3 Lymphocytes # (Auto) 3.1 1.0-4.0 X 10^3 Monocytes # (Auto) 0.5 0.0-1.0 X 10^3 Eosinophils # (Auto) 0.4 H 0.0-0.3 10^3/uL Basophils # (Auto) 0.0 0.0-0.1 10^3/uL Prothrombin Time 12.9 12.2-14.7 SEC INR Comment 1.0 0.8-1.4 Activated Partial Thromboplast Time 31 24-35 SEC D-Dimer 0.43 0.00-0.49 UG/ML Sodium Level 140 135-145 MMOL/L Potassium Level 3.8 3.6-5.0 MMOL/L Chloride Level 109 H 98-107 MMOL/L Carbon Dioxide Level 22 21-32 MMOL/L Anion Gap 9 5-14 MMOL/L Blood Urea Nitrogen 11 7-18 MG/DL Creatinine 0.74 0.60-1.30 MG/DL Estimat Glomerular Filtration Rate > 60 BUN/Creatinine Ratio 15 Glucose Level 103 70-105 MG/DL Calcium Level 8.9 8.5-10.1 MG/DL Total Bilirubin 0.3 0.1-1.0 MG/DL Aspartate Amino Transf (AST/SGOT) 24 5-34 U/L Alanine Aminotransferase (ALT/SGPT) 31 0-55 U/L Alkaline Phosphatase 68 40-136 U/L Total Protein 7.1 6.4-8.2 GM/DL Albumin 4.1 3.2-4.5 GM/DL My Orders Orders - GAURAV RICHARDSON Comprehensive Metabolic Panel (01/21/18 19:14) Cbc With Automated Diff (01/21/18 19:14) Protime With Inr (01/21/18 19:14) Partial Thromboplastin Time (01/21/18 19:14) Fibrin Degradation Products (01/21/18 19:14) Chest Pa/Lat (2 View) (01/21/18 19:14) Saline Lock/Iv-Start (01/21/18 19:14) Monitor-Rhythm Ecg Trace Only (01/21/18 19:14) Hydroxyzine Oral (Atarax Tablet) (01/21/18 20:30) Hydroxyzine Oral (Vistaril Capsule) (01/21/18 20:45) Medications Given in ED Vital Signs/I&O 01/21/18 01/21/18 18:55 21:06 Temp 99.4 99.4 Pulse 84 84 Resp 28 28 B/P (MAP) 116/73 (87) 116/73 (87) Pulse Ox 99 99 O2 Delivery Room Air Capillary Refill : Less Than 3 Seconds Blood Pressure Mean: 87 Progress Note : Progress Note I have seen and evaluated the patient. Given her normal lab findings and normal chest x-ray I think that her symptoms are attributed to stress and anxiety that she's been dealing with for some time. I discussed medication options with the patient and she was hesitant to take anything for her anxiety but she agreed to take Atarax. After the administration of Atarax she did have relief of symptoms and agreed to take a prescription. She agrees for lanes of discharge, return precautions and close follow-up with her primary care physician. Departure Impression Primary Impression: Anxiety Disposition: 01 HOME, SELF-CARE Condition: Stable/Unchanged Departure-Patient Inst. Decision time for Depature: 20:30 Referrals: [facility] (PCP) Primary Care Physician GAURAV NOONAN APRN (Family) Primary Care Physician Patient Instructions: Anxiety, Adult (DC) Add. Discharge Instructions: Take medication as directed. Follow-up with your doctor within 1 week for recheck. Try to avoid stressful situations that could increase her anxiety level. Return back to the emergency room for any worsening symptoms or any concerns as needed. All discharge instructions reviewed with patient and/or family. Voiced understanding. Scripts Hydroxyzine Pamoate (Vistaril) 25 Mg Capsule 25 MG PO Q6H PRN for ANXIETY, #14 CAP Prov: GAURAV RICHARDSON 01/21/18 GAURAV RICHARDSON Jan 21, 2018 20:32
[2018-01-21] MEDS ORDERED: HYDR25CA PO (20:35)
[2018-01-21] MEDS ORDERED: hydrOXYzine (VISTARIL) 25 MG CAP PO ONE (20:45)
[2018-01-21 21:06] VITALS: BP 116/73
== END 2018-01-21 21:06 | disposition home or self-care (01) ==
LOC: EDUNIT# 18:43 → ER 18:44
DX: F41.9 Anxiety disorder, unspecified (principal); J45.909 Unspecified asthma, uncomplicated; Z87.891 Personal history of nicotine dependence; Z87.59 Personal history of other complications of pregnancy, childbirth and the puerperium
CPT/HCPCS: 36415; 71046; 80053; 85025; 85379; 85610; 85730; 93041

== ENCOUNTER 2018-08-29 11:35 | Emergency (ER) | payer OTHER ==
[~2018-08-29] VITALS: Ht 167.6 cm; Wt 113.4 kg
[~2018-08-29 11:35] MED LIST changes: +HYDR25CA PO
--- NOTE | 2018-08-29 12:33 | ED Cough/URI ---
General Chief Complaint: Cough/Cold/Flu Symptoms Stated Complaint: COUGH Nursing Triage Note: Ambulatory to FT-1. Pt reports cough that began as sore throat on Wednesday. Pt now reports coughing up brown mucous. Pt reports that cough has increased pt's back pain. Pt also reports vomiting twice today and three times yesterday. Sepsis Screen: No Definite Risk Source: patient Exam Limitations: no limitations History of Present Illness Date Seen by Provider: Aug 29, 2018 Time Seen by Provider: 12:32 Initial Comments To ER per private vehicle with reports of sore throat, cough productive of brown mucus and posttussive emesis as well as low back pain. Symptoms began Wednesday morning, about 48 hours ago. Timing/Duration: constant Severity/Quality: productive cough Associated Symptoms: cough, fever/chills (no fevers), nasal congestion, nasal drainage Allergies and Home Medications Allergies Coded Allergies: No Known Drug Allergies (Unverified , 12/12/16) Home Medications Hydroxyzine Pamoate 25 Mg Capsule, 25 MG PO Q6H PRN for ANXIETY Prescribed by: GAURAV RICHARDSON on 01/21/182034 Patient Home Medication List Home Medication List Reviewed: Yes Review of Systems Review of Systems Constitutional: see HPI EENTM: no symptoms reported, nose congestion Respiratory: see HPI, cough Cardiovascular: no symptoms reported Genitourinary: no symptoms reported Musculoskeletal: no symptoms reported Skin: no symptoms reported Psychiatric/Neurological: No Symptoms Reported Past Fhtmxlx-Tsvpqh-Jcittu Hx Patient Social History Alcohol Use: Rarely Uses Recreational Drug Use: No Smoking Status: Current Everyday Smoker Type Used: Cigarettes Former Smoker, Quit: Dec 03, 2016 2nd Hand Smoke Exposure: Yes Recent Foreign Travel: No Contact w/Someone Who Travel: No Recent Infectious Disease Expo: No Recent Hopitalizations: No Physical Abuse: No Sexual Abuse: No Immunizations Up To Date Tetanus Booster (TDap): Unknown PED Vaccines UTD: Yes Seasonal Allergies Seasonal Allergies: No Past Medical History Surgeries: Yes Section, Gallbladder Respiratory: Yes Asthma Cardiac: No Neurological: No Last Menstrual Period: Jul 16, 2018 Genitourinary: No Gastrointestinal: No Musculoskeletal: Yes (chronic chest spasms) Endocrine: Yes ("can't regulate thyroid") HEENT: No Cancer: No Psychosocial: No Integumentary: No Blood Disorders: No Physical Exam Vital Signs - First Documented Capillary Refill : Less Than 3 Seconds Height: 5'6.00" Weight: 250lbs. oz. 113.880031bz; BMI Method:Stated General Appearance: WD/WN, no apparent distress Eyes: Bilateral Eye Normal Inspection, Bilateral Eye PERRL, Bilateral Eye EOMI HEENT: PERRL/EOMI, normal ENT inspection, TMs normal, pharyngeal erythema Neck: non-tender, full range of motion Respiratory: no respiratory distress, no accessory muscle use Gastrointestinal: normal bowel sounds, non tender, soft Neurologic/Psychiatric: alert, normal mood/affect, oriented x 3 Skin: normal color, warm/dry Progress/Results/Core Measures Suspected Sepsis Recent Fever Within 48 Hours: No Infection Criteria Present: None New/Unexplained Altered Menta: No Sepsis Screen: No Definite Risk SIRS Temperature:97.3 Pulse: 81 Respiratory Rate: 16 Laboratory Tests 08/29/18 12:25: White Blood Count 8.4 Blood Pressure 117 /69 Mean: 85 Laboratory Tests 08/29/18 12:25: Platelet Count 358 Results/Orders Lab Results Laboratory Tests Test 08/29/18 12:25 Range/Units White Blood Count 8.4 4.3-11.0 10^3/uL Red Blood Count 4.86 4.35-5.85 10^6/uL Hemoglobin 14.3 11.5-16.0 G/DL Hematocrit 43 35-52 % Mean Corpuscular Volume 87 80-99 FL Mean Corpuscular Hemoglobin 29 25-34 PG Mean Corpuscular Hemoglobin Concent 34 32-36 G/DL Red Cell Distribution Width 12.9 10.0-14.5 % Platelet Count 358 130-400 10^3/uL Mean Platelet Volume 9.8 7.4-10.4 FL Neutrophils (%) (Auto) 64 42-75 % Lymphocytes (%) (Auto) 24 12-44 % Monocytes (%) (Auto) 6 0-12 % Eosinophils (%) (Auto) 6 0-10 % Basophils (%) (Auto) 0 0-10 % Neutrophils # (Auto) 5.4 1.8-7.8 X 10^3 Lymphocytes # (Auto) 2.1 1.0-4.0 X 10^3 Monocytes # (Auto) 0.5 0.0-1.0 X 10^3 Eosinophils # (Auto) 0.5 H 0.0-0.3 10^3/uL Basophils # (Auto) 0.0 0.0-0.1 10^3/uL Serum Test, Qualitative NEGATIVE NEGATIVE Micro Results Microbiology 08/29/18 Influenza Types A,B Antigen ([facility]) - Final, Complete My Orders Orders - KIA VALDES APRN Chest Pa/Lat (2 View) (08/29/18 12:25) Cbc With Automated Diff (08/29/18 12:25) Comprehensive Metabolic Panel (08/29/18 12:25) Iv Heplock-Insert (Order) (08/29/18 12:25) Lactated Ringers (Lr 1000 Ml Iv Solution (08/29/18 12:45) Ketorolac Injection (Toradol Injection) (08/29/18 12:45) Influenza A And B Antigens (08/29/18 12:31) Hcg,Qualitative Serum (08/29/18 12:48) Medications Given in ED Current Medications Medications Dose Ordered Sig/Betzy Route Start Time Stop Time Status Last Admin Dose Admin Ketorolac Tromethamine 30 mg ONCE ONCE IVP 08/29/18 12:45 08/29/18 12:46 DC 08/29/18 12:45 30 MG Vital Signs/I&O 08/29/18 08/29/18 12:01 12:01 Temp 97.3 Pulse 81 Resp 16 B/P (MAP) 117/69 (85) Pulse Ox 98 O2 Delivery Room Air Room Air Capillary Refill : Less Than 3 Seconds Blood Pressure Mean: 85 Departure Impression Primary Impression: Influenza Disposition: 01 HOME, SELF-CARE Condition: Stable Departure-Patient Inst. Decision time for Depature: 13:04 Referrals: [facility] (PCP) Primary Care Physician GAURAV NOONAN APRN (Family) Primary Care Physician Patient Instructions: Flu Add. Discharge Instructions: 1. Use xhjh-gap-tfwksax cough medications such as Robitussin DayQuil or NyQuil, follow-up with your doctor later this week. Return to ER for any concerns. Tylenol and Motrin for fever control. Drink plenty of fluids. All discharge instructions reviewed with patient and/or family. Voiced understanding. Work/School Note: Work Release Form Date Seen in the Emergency Department: Aug 29, 2018 Return to Work: Sep 03, 2018 KIA VALDES APRN Aug 29, 2018 12:33
[2018-08-29 12:40] LABS: BASOPHILS % (AUTO) 0 % (0-10); EOSINOPHILS # (AUTO) 0.5 10^3/uL (0.0-0.3); EOSINOPHILS % (AUTO) 6 % (0-10); HEMATOCRIT 43 % (35-52); HEMOGLOBIN 14.3 G/DL (11.5-16.0); LYMPHOCYTES # (AUTO) 2.1 X 10^3 (1.0-4.0); LYMPHOCYTES % (AUTO) 24 % (12-44); MEAN CORPUSCULAR HEMOGLOBIN 29 PG (25-34); MEAN CORPUSCULAR HGB CONC 34 G/DL (32-36); MEAN CORPUSCULAR VOLUME 87 FL (80-99); MEAN PLATELET VOLUME 9.8 FL (7.4-10.4); MONOCYTES # (AUTO) 0.5 X 10^3 (0.0-1.0); MONOCYTES % (AUTO) 6 % (0-12); NEUTROPHILS # (AUTO) 5.4 X 10^3 (1.8-7.8); NEUTROPHILS % (AUTO) 64 % (42-75); PLATELET COUNT 358 10^3/uL (130-400); RED CELL DISTRIBUTION WIDTH 12.9 % (10.0-14.5); WHITE BLOOD COUNT 8.4 10^3/uL (4.3-11.0)
[2018-08-29] MEDS ORDERED: KETOROLAC 30 MG/ML VIAL IVP ONE (12:45)
[2018-08-29] MEDS ORDERED: LACTATED RINGERS 1,000 ML IV SCH (12:45)
[2018-08-29 13:09] LABS: ALANINE AMINOTRANSFERASE 38 U/L (0-55); ALKALINE PHOSPHATASE 73 U/L (40-136); BILIRUBIN,TOTAL 0.4 MG/DL (0.1-1.0); BUN/CREATININE RATIO 12; CALCIUM 8.8 MG/DL (8.5-10.1); CARBON DIOXIDE 24 MMOL/L (21-32); CHLORIDE 108 MMOL/L (98-107); CREATININE SERUM 0.65 MG/DL (0.60-1.30); GFR ESTIMATED > 60; GLUCOSE 89 MG/DL (70-105); POTASSIUM 3.9 MMOL/L (3.6-5.0); SODIUM 139 MMOL/L (135-145); TOTAL PROTEIN 7.2 GM/DL (6.4-8.2)
--- NOTE | 2018-08-29 13:33 | Diagnostic Imaging Report ---
INDICATION: Back pain and productive cough. COMPARISON: Comparison is made with prior examination from 01/21/2018. TECHNIQUE: PA and lateral views were obtained. FINDINGS: The heart size, mediastinal configuration, and pulmonary vascularity are within normal limits. There is no pleural effusion, pneumothorax, or pneumonia. The osseous structures are unremarkable. IMPRESSION: No acute cardiopulmonary abnormality. Dictated by: Dictated on workstation # [id number]
[2018-08-29 13:40] VITALS: BP 115/72
== END 2018-08-29 13:40 | disposition home or self-care (01) ==
LOC: EDUNIT# 11:35 → ER 11:37
DX: J11.1 Influenza due to unidentified influenza virus with other respiratory manifestations (principal); J45.909 Unspecified asthma, uncomplicated; Z87.891 Personal history of nicotine dependence; Z98.890 Other specified postprocedural states
CPT/HCPCS: 36415; 71046; 80053; 84703; 85025; 87804; 96361; 96374

== ENCOUNTER 2018-09-14 09:30 | Emergency (ER) | payer OTHER ==
[~2018-09-14] VITALS: Ht 167.6 cm; Wt 111.1 kg
[2018-09-14] MEDS ORDERED: HYOSCYAMINE 0.125 MG (LEVSIN) TAB SL ONE (10:00)
[2018-09-14 10:10] LABS: BASOPHILS % (AUTO) 0 % (0-10); EOSINOPHILS # (AUTO) 0.1 10^3/uL (0.0-0.3); EOSINOPHILS % (AUTO) 0 % (0-10); HEMATOCRIT 42 % (35-52); HEMOGLOBIN 14.7 G/DL (11.5-16.0); LYMPHOCYTES # (AUTO) 1.9 X 10^3 (1.0-4.0); LYMPHOCYTES % (AUTO) 15 % (12-44); MEAN CORPUSCULAR HEMOGLOBIN 30 PG (25-34); MEAN CORPUSCULAR HGB CONC 35 G/DL (32-36); MEAN CORPUSCULAR VOLUME 84 FL (80-99); MEAN PLATELET VOLUME 10.5 FL (7.4-10.4); MONOCYTES # (AUTO) 0.6 X 10^3 (0.0-1.0); MONOCYTES % (AUTO) 5 % (0-12); NEUTROPHILS # (AUTO) 10.4 X 10^3 (1.8-7.8); NEUTROPHILS % (AUTO) 80 % (42-75); PLATELET COUNT 320 10^3/uL (130-400); RED CELL DISTRIBUTION WIDTH 13.2 % (10.0-14.5)
[2018-09-14 10:23] LABS: ALANINE AMINOTRANSFERASE 33 U/L (0-55); ALKALINE PHOSPHATASE 69 U/L (40-136); BILIRUBIN,TOTAL 0.4 MG/DL (0.1-1.0); BUN/CREATININE RATIO 10; CALCIUM 8.6 MG/DL (8.5-10.1); CARBON DIOXIDE 19 MMOL/L (21-32); CHLORIDE 108 MMOL/L (98-107); CREATININE SERUM 0.63 MG/DL (0.60-1.30); GFR ESTIMATED > 60; GLUCOSE 104 MG/DL (70-105); LIPASE 12 U/L (8-78); POTASSIUM 3.5 MMOL/L (3.6-5.0); SODIUM 137 MMOL/L (135-145); TOTAL PROTEIN 7.3 GM/DL (6.4-8.2)
[2018-09-14 10:36] LABS: BILIRUBIN,URINE NEGATIVE (NEGATIVE); CLARITY,URINE CLEAR; COLOR,URINE YELLOW; GLUCOSE, URINE (UA) NEGATIVE (NEGATIVE); KETONES,URINE NEGATIVE (NEGATIVE); LEUKOCYTE ESTERASE ,URINE 1+ (NEGATIVE); NITRITE,URINE NEGATIVE (NEGATIVE); PH,URINE 6 (5-9); PROTEIN,URINE 2+ (NEGATIVE); UROBILINOGEN,URINE NORMAL (NORMAL)
--- NOTE | 2018-09-14 10:44 | ED Abdominal Pain ---
General Chief Complaint: Abdominal/GI Problems Stated Complaint: SEVERE STOMACH PAIN Nursing Triage Note: PT AMB TO RM 10 WITH COMPLAINT OF LOW ABD PAIN. STATES PAIN STARTED WEDNESDAY. STATES PAIN IS WORSE WHENEVER SHE IS HAVING DIARRHEA. PT STATES SHE HAS HAD YELLOW TO CLEAR DIARRHEA. STATES SHE HAS HX OF IBS. Sepsis Screen: No Definite Risk Source of Information: Patient Exam Limitations: No Limitations History of Present Illness Date Seen by Provider: Sep 14, 2018 Time Seen by Provider: 09:55 Initial Comments This 28-year-old woman presents to the emergency room with complaints of watery diarrhea, intense painful abdominal cramping, and generalized abdominal discomfort. This is the third day of symptoms. She also notes irregular menstrual cycles recently without a period in the last 3 months. She is febrile with a temperature of 101.6. She denies nausea or vomiting. She reports Dr. Aguayo performed lab work on September 12. Patient was seen for influenza on August in this ER. Patient was previously assigned to Vy William at [facility]. However, she is awaiting assignment of a new provider since Vy left. Allergies and Home Medications Allergies Coded Allergies: No Known Drug Allergies (Unverified , 12/12/16) Home Medications Ciprofloxacin HCl 500 Mg Tablet, 500 MG PO BID Prescribed by: OG SERNA on 09/14/18 1333 Hydroxyzine Pamoate 25 Mg Capsule, 25 MG PO Q6H PRN for ANXIETY Prescribed by: GAURAV RICHARDSON on 01/21/182034 Hyoscyamine Sulfate 0.125 Mg Tab.subl, 1-2 TAB SL Q4H PRN for CRAMPS Prescribed by: OG SERNA on 09/14/18 1333 Metronidazole 500 Mg Tablet, 500 MG PO TID Prescribed by: OG SERNA on 09/14/18 1333 Patient Home Medication List Home Medication List Reviewed: Yes Review of Systems Review of Systems Constitutional: see HPI EENTM: No Symptoms Reported Respiratory: No Symptoms Reported Cardiovascular: No Symptoms Reported Gastrointestinal: See HPI Genitourinary: No Symptoms Reported Musculoskeletal: no symptoms reported Skin: no symptoms reported Psychiatric/Neurological: No Symptoms Reported Endocrine: No Symptoms Reported Hematologic/Lymphatic: No Symptoms Reported Past Zryvhkb-Ygfmnu-Zfzjla Hx Past Med/Social Hx: Reviewed and Corrections made Patient Social History Alcohol Use: Occasionally Uses Recreational Drug Use: No Smoking Status: Former Smoker Type Used: Cigarettes Former Smoker, Quit: Dec 03, 2016 2nd Hand Smoke Exposure: Yes Recent Foreign Travel: No Contact w/Someone Who Travel: No Recent Infectious Disease Expo: No Recent Hopitalizations: No Immunizations Up To Date Tetanus Booster (TDap): Unknown PED Vaccines UTD: Yes Seasonal Allergies Seasonal Allergies: No Past Medical History Surgeries: Yes Section, Gallbladder Respiratory: Yes Asthma Cardiac: No Neurological: No : No Reproductive Disorders: Yes Female Reproductive Disorders: Menstrual Problems Genitourinary: No Gastrointestinal: Yes Irritable Bowel Musculoskeletal: Yes (chronic chest spasms) Endocrine: Yes ("can't regulate thyroid") HEENT: No Cancer: No Psychosocial: No Integumentary: No Blood Disorders: No Physical Exam Vital Signs Vital Signs - First Documented 09/14/18 09:35 Temp 101.6 Pulse 99 Resp 20 B/P (MAP) 112/88 (96) Pulse Ox 97 O2 Delivery Room Air Capillary Refill : Less Than 3 Seconds Height/Weight/BMI Height: 5'6.00" Weight: 245lbs. oz. 111.049005bs; BMI Method:Stated General Appearance: WD/WN, mild distress HEENT: PERRL/EOMI, normal ENT inspection Neck: normal inspection Respiratory: lungs clear, normal breath sounds, no respiratory distress, no accessory muscle use Cardiovascular: regular rate, rhythm, no edema, no murmur Gastrointestinal: normal bowel sounds, soft, tenderness (mild generalized tenderness) Extremities: normal inspection, no pedal edema Neurologic/Psychiatric: writer II-XII nml as tested, no motor/sensory deficits, alert, normal mood/affect, oriented x 3 Skin: normal color, warm/dry Focused Exam Lactate Level 09/14/18 12:04: Lactic Acid Level 0.78 Lactic Acid Level Laboratory Tests Test 09/14/18 12:04 Lactic Acid Level 0.78 MMOL/L (0.50-2.00) Progress/Results/Core Measures Results/Orders Lab Results Laboratory Tests Test 09/14/18 09:45 09/14/18 10:30 09/14/18 11:30 09/14/18 12:04 Range/Units White Blood Count 13.0 H 4.3-11.0 10^3/uL Red Blood Count 4.98 4.35-5.85 10^6/uL Hemoglobin 14.7 11.5-16.0 G/DL Hematocrit 42 35-52 % Mean Corpuscular Volume 84 80-99 FL Mean Corpuscular Hemoglobin 30 25-34 PG Mean Corpuscular Hemoglobin Concent 35 32-36 G/DL Red Cell Distribution Width 13.2 10.0-14.5 % Platelet Count 320 130-400 10^3/uL Mean Platelet Volume 10.5 H 7.4-10.4 FL Neutrophils (%) (Auto) 80 H 42-75 % Lymphocytes (%) (Auto) 15 12-44 % Monocytes (%) (Auto) 5 0-12 % Eosinophils (%) (Auto) 0 0-10 % Basophils (%) (Auto) 0 0-10 % Neutrophils # (Auto) 10.4 H 1.8-7.8 X 10^3 Lymphocytes # (Auto) 1.9 1.0-4.0 X 10^3 Monocytes # (Auto) 0.6 0.0-1.0 X 10^3 Eosinophils # (Auto) 0.1 0.0-0.3 10^3/uL Basophils # (Auto) 0.0 0.0-0.1 10^3/uL Sodium Level 137 135-145 MMOL/L Potassium Level 3.5 L 3.6-5.0 MMOL/L Chloride Level 108 H 98-107 MMOL/L Carbon Dioxide Level 19 L 21-32 MMOL/L Anion Gap 10 5-14 MMOL/L Blood Urea Nitrogen 6 L 7-18 MG/DL Creatinine 0.63 0.60-1.30 MG/DL Estimat Glomerular Filtration Rate > 60 BUN/Creatinine Ratio 10 Glucose Level 104 70-105 MG/DL Calcium Level 8.6 8.5-10.1 MG/DL Corrected Calcium 8.6 8.5-10.1 MG/DL Total Bilirubin 0.4 0.1-1.0 MG/DL Aspartate Amino Transf (AST/SGOT) 25 5-34 U/L Alanine Aminotransferase (ALT/SGPT) 33 0-55 U/L Alkaline Phosphatase 69 40-136 U/L C-Reactive Protein High Sensitivity 12.40 H 0.00-0.50 MG/DL Total Protein 7.3 6.4-8.2 GM/DL Albumin 4.0 3.2-4.5 GM/DL Lipase 12 8-78 U/L Serum Test, Qualitative NEGATIVE NEGATIVE Urine Color YELLOW Urine Clarity CLEAR Urine pH 6 5-9 Urine Specific Willet 1.015 L 1.016-1.022 Urine Protein 2+ H NEGATIVE Urine Glucose (UA) NEGATIVE NEGATIVE Urine Ketones NEGATIVE NEGATIVE Urine Nitrite NEGATIVE NEGATIVE Urine Bilirubin NEGATIVE NEGATIVE Urine Urobilinogen NORMAL NORMAL MG/DL Urine Leukocyte Esterase 1+ H NEGATIVE Urine RBC (Auto) 3+ H NEGATIVE Urine RBC 0-2 /HPF Urine WBC 0-2 /HPF Urine Squamous Epithelial Cells 5-10 /HPF Urine Crystals NONE /LPF Urine Bacteria FEW H /HPF Urine Casts NONE /LPF Urine Mucus MODERATE H /LPF Urine Culture Indicated NO Stool Occult Blood Immunoassay POSITIVE H NEGATIVE Lactic Acid Level 0.78 0.50-2.00 MMOL/L My Orders Orders - OG LANE MD Cbc With Automated Diff (09/14/18 10:00) Comprehensive Metabolic Panel (09/14/18 10:00) Hs C Reactive Protein (09/14/18 10:00) Lipase (09/14/18 10:00) Ua Culture If Indicated (09/14/18 10:00) Saline Lock/Iv-Start (09/14/18 10:00) Hcg,Qualitative Serum (09/14/18 10:00) Hyoscyamine Sl Tablet (Levsin Sl Tablet) (09/14/18 10:00) Ct Abdomen/Pelvis W (09/14/18 10:45) Iohexol Injection (Omnipaque 350 Mg/Ml 1 (09/14/18 11:00) Received Contrast (Contrast Received) (09/14/18 11:00) Ns (Ivpb) (Sodium Chloride 0.9% Ivpb Bag (09/14/18 11:00) Ketorolac Injection (Toradol Injection) (09/14/18 11:45) Ciprofloxacin Iv 400mg/200ml (Cipro Iv S (09/14/18 11:45) Blood Culture (09/14/18 11:44) Lactic Acid Analyzer (09/14/18 11:44) Saline Lock/Iv-Start (09/14/18 11:44) Lactated Ringers (Lr 1000 Ml Iv Solution (09/14/18 11:44) Stool Culture (09/14/18 11:44) Fecal Wbc (09/14/18 11:44) C Difficile Ag + Toxin A/B. (09/14/18 11:44) Occult Blood Stool (09/14/18 11:44) Medications Given in ED Current Medications Medications Dose Ordered Sig/Betzy Route Start Time Stop Time Status Last Admin Dose Admin Ciprofloxacin/ Dextrose 200 ml @ 200 mls/hr ONCE ONCE IV 09/14/18 11:45 09/14/18 12:44 DC 09/14/18 12:55 200 MLS/HR Hyoscyamine Sulfate 0.25 mg ONCE ONCE SL 09/14/18 10:00 09/14/18 10:02 DC 09/14/18 10:06 0.25 MG Iohexol 150 ml ONCE ONCE IV 09/14/18 11:00 09/14/18 11:01 DC 09/14/18 11:01 125 ML Ketorolac Tromethamine 15 mg ONCE ONCE IVP 09/14/18 11:45 09/14/18 11:47 DC 09/14/18 12:10 15 MG Lactated Ringer's 1,000 ml @ 0 mls/hr Q0M ONCE IV 09/14/18 11:44 09/14/18 11:48 DC 09/14/18 12:10 1,000 MLS/HR Sodium Chloride 100 ml ONCE ONCE IV 09/14/18 11:00 09/14/18 11:01 DC 09/14/18 11:02 80 ML Vital Signs/I&O 09/14/18 09:35 Temp 101.6 Pulse 99 Resp 20 B/P (MAP) 112/88 (96) Pulse Ox 97 O2 Delivery Room Air Blood Pressure Mean: 96 Progress Progress Note #1: Time: 10:38 Progress Note Patient was seen and assessed. Labs were ordered and reviewed. Patient does have elevated WBC and CRP. This in conjunction with fever which suggest and possible infectious etiology. If patient has another bowel movement, we will collect it and send it for studies. Levsin was given and did help her cramping to some degree. Patient denies ever having any imaging or endoscopy performed for her IBS. We will discuss the potential for imaging now. Progress Note #2: Time: 10:45 Progress Note After discussing risks and benefits of CT scan, patient elects to proceed with CT imaging. We discussed risks that include reaction to contrast dye, cost, and radiation exposure leading to increased cancer risk. Progress Note #3: Time: 11:58 Progress Note Uncomplicated colitis noted on CT scan. Patient will be treated with Cipro, IV fluids, and Toradol. Blood culture will be drawn prior to administration of Cipro as a precaution. We will reassess after administration of these medications to determine if patient can tolerate outpatient therapy or will need admission. Progress Note #4: Time: 13:45 Progress Note Patient's fluids are done and she is nearly done with her Cipro infusion. She is feeling improved enough that she would like to try outpatient therapy. Heart rate is now down to 85. I discussed follow-up with Dr. French who will help make sure a she is able to get a prompt follow-up appointment in the clinic. Diagnostic Imaging Diagonstic Imaging: CT Plain Films/CT/US/NM/MRI: abdomen, pelvis Comments CT abdomen and pelvis viewed by me and report reviewed. See report below: NAME: ALVIN TOBAR [facility] REC#: [id number] PT STATUS: REG ER : 1990 PHYSICIAN: OG LANE MD ADMIT DATE: 09/14/18/ER Draft Date of Exam:09/14/18 CT ABDOMEN/PELVIS W PROCEDURE: CT abdomen and pelvis with contrast. TECHNIQUE: Multiple contiguous axial images were obtained through the abdomen and pelvis after administration of intravenous contrast. INDICATION: Severe abdominal pain for three days and fever. COMPARISON: No prior studies are available for comparison. FINDINGS: The lung bases demonstrate some linear scarring or atelectasis in the right middle lobe and lingula. The liver demonstrates generalized low density consistent with hepatic steatosis. No discrete liver mass is identified. The gallbladder is surgically absent. No biliary duct dilatation is identified. The pancreas and spleen are unremarkable. No adrenal mass is identified. The kidneys are unremarkable. Aorta is non-aneurysmal. There are small lymph nodes in the central retroperitoneum left para-aortic region, nonspecific. Small bowel loops are nondilated. There is questionable generalized bowel wall thickening of the colon versus incomplete distention. Possibility of generalized colitis cannot be excluded. The appendix is unremarkable. No ascites. No fluid collection or free air is seen. The uterus and bladder are unremarkable. No pelvic lymphadenopathy is seen. IMPRESSION: 1. Hepatic steatosis. 2. Findings suspicious for generalized nonspecific colitis versus incomplete distention of the colon. No other significant abnormality is seen. Dictated on workstation # [id number] Dict: 09/14/18 1116 Trans: 09/14/18 1125 [facility] [id number] Interpreted by: JENNIFER STOREY MD Departure Impression Primary Impression: Acute colitis Additional Impression: Acute diarrhea Disposition: 01 HOME, SELF-CARE Condition: Improved Departure-Patient Inst. Referrals: [facility]/ (PCP) Primary Care Physician GAURAV NOONAN APRN (Family) Primary Care Physician Patient Instructions: Diarrhea in Adolescents and Adults Add. Discharge Instructions: Consume a clear liquid diet for the remainder of today. Drink plenty of clear liquids. Gradually advance your diet with small quantities of bland food as tolerated tomorrow. Treat your pain with Tylenol (acetaminophen) up to 1000 mg every 6 hours as needed. For pain not controlled by Tylenol, you may add ibuprofen up to 600 mg every 6 hours as needed. Please have a low threshold for returning to the emergency room or calling your physician if symptoms are worsening. Start your antibiotic today and complete the entire course of antibiotics unless otherwise directed by your doctor. Please follow-up with the [facility] clinic as soon as possible. Please call today for an appointment time. All discharge instructions reviewed with patient and/or family. Voiced understanding. Scripts Hyoscyamine Sulfate (Levsin-Sl) 0.125 Mg Tab.subl 1-2 TAB SL Q4H PRN for CRAMPS, #10 TAB Prov: OG LANE MD 09/14/18 Metronidazole (Flagyl) 500 Mg Tablet 500 MG PO TID, #30 TAB Prov: OG LANE MD 09/14/18 Ciprofloxacin HCl (Cipro) 500 Mg Tablet 500 MG PO BID, #20 TAB Prov: OG LANE MD 09/14/18 Copy Copies To 1: BOBBY FRENCH MD, JOSHUA T MD Sep 14, 2018 10:44
[2018-09-14 10:49] LABS: BACTERIA,URINE FEW /HPF; RBC,URINE 0-2 /HPF; WBC,URINE 0-2 /HPF
[2018-09-14] MEDS ORDERED: NS 100 ML (IVPB) BAG IV ONE (11:00)
[2018-09-14] MEDS ORDERED: RECEIVED CONTRAST 20 ML VIAL IV SCH (11:00)
[2018-09-14] MEDS ORDERED: IOHEXOL 350 MG/ML 150 ML (OMNIPAQUE 350) VIAL IV ONE (11:00)
--- NOTE | 2018-09-14 11:25 | Diagnostic Imaging Report ---
PROCEDURE: CT abdomen and pelvis with contrast. TECHNIQUE: Multiple contiguous axial images were obtained through the abdomen and pelvis after administration of intravenous contrast. INDICATION: Severe abdominal pain for three days and fever. COMPARISON: No prior studies are available for comparison. FINDINGS: The lung bases demonstrate some linear scarring or atelectasis in the right middle lobe and lingula. The liver demonstrates generalized low density consistent with hepatic steatosis. No discrete liver mass is identified. The gallbladder is surgically absent. No biliary duct dilatation is identified. The pancreas and spleen are unremarkable. No adrenal mass is identified. The kidneys are unremarkable. Aorta is non-aneurysmal. There are small lymph nodes in the central retroperitoneum left para-aortic region, nonspecific. Small bowel loops are nondilated. There is questionable generalized bowel wall thickening of the colon versus incomplete distention. Possibility of generalized colitis cannot be excluded. The appendix is unremarkable. No ascites. No fluid collection or free air is seen. The uterus and bladder are unremarkable. No pelvic lymphadenopathy is seen. IMPRESSION: 1. Hepatic steatosis. 2. Findings suspicious for generalized nonspecific colitis versus incomplete distention of the colon. No other significant abnormality is seen. Dictated by: Dictated on workstation # [id number]
[2018-09-14] MEDS ORDERED: LACTATED RINGERS 1,000 ML IV ONE (11:44)
[2018-09-14] MEDS ORDERED: KETOROLAC 30 MG/ML VIAL IVP ONE (11:45)
[2018-09-14] MEDS ORDERED: CIPROFLOXACIN IV 400MG/200ML 200 ML IV ONE (11:45)
[2018-09-14] MEDS ORDERED: METR500T PO (13:33)
[2018-09-14] MEDS ORDERED: CIPR-225 PO (13:33)
[2018-09-14] MEDS ORDERED: HYOS0.1283 SL (13:33)
[2018-09-14 14:19] VITALS: BP 101/68
== END 2018-09-14 14:14 | disposition home or self-care (01) ==
LOC: EDUNIT# 09:30 → ER 09:32
DX: K52.9 Noninfective gastroenteritis and colitis, unspecified (principal); J45.909 Unspecified asthma, uncomplicated; K58.9 Irritable bowel syndrome, unspecified; Z87.448 Personal history of other diseases of urinary system; Z87.891 Personal history of nicotine dependence; Z98.890 Other specified postprocedural states
CPT/HCPCS: 36415; 74177; 80053; 81000; 82274; 83605; 83690; 84703; 85025; 86141; 87015; 87040; 87045; 87046; 87324; 87449; 87899

== ENCOUNTER 2018-10-20 05:38 | Outpatient (CLI) | payer OTHER ==
[~2018-10-20] VITALS: Ht 167.6 cm; Wt 111.1 kg
[~2018-10-20 05:38] MED LIST changes: +CIPR-225 PO; +HYOS0.1283 SL; +METR500T PO
== END 2018-10-20 13:10 | disposition home or self-care (01) ==
LOC: PREOP 05:38
PROVIDERS: ATTEND Surgery
DX: Z01.818 Encounter for other preprocedural examination (principal)

== ENCOUNTER 2018-10-24 10:05 | Day surgery (SDC) | payer OTHER ==
[~2018-10-24] VITALS: Ht 167.6 cm; Wt 111.1 kg
[2018-10-24] MEDS ORDERED: LACTATED RINGERS 1,000 ML IV STA (10:16)
[2018-10-24] MEDS ORDERED: LACTATED RINGERS 1,000 ML IV ONE (10:24)
[2018-10-24] MEDS ORDERED: HURRICAINE EXT TUBE (BENZOCAINE) XX PRN (10:30)
--- NOTE | 2018-10-24 10:48 | Progress Note-Pre Operative ---
Pre-Operative Progress Note H&P Reviewed The H&P was reviewed, patient examined and no changes noted. Time Seen by Provider: 10:46 Date H&P Reviewed: Oct 24, 2018 Time H&P Reviewed: 10:45 Pre-Operative Diagnosis: Gastritis/reflux, diarrhea BRIE HALL DO Oct 24, 2018 10:48
[2018-10-24 11:06] VITALS: BP 99/69
[2018-10-24] MEDS ORDERED: PROPOFOL INJECTION 50 ML IV ONE (11:10)
[2018-10-24] MEDS ORDERED: MIDAZOLAM 2 MG/2 ML (VERSED) VIAL ONE (11:11)
[2018-10-24] MEDS ORDERED: HURRICAINE EXT TUBE (BENZOCAINE) ONE (11:28)
--- NOTE | 2018-10-24 11:57 | Progress Note-Post Operative ---
Post-Operative Progess Note Surgeon (s)/Baby Registry Sales Consultant (s) Surgeon BRIE HALL DO Baby Registry Sales Consultant: none Pre-Operative Diagnosis Gastritis/reflux, diarrhea Post-Operative Diagnosis Gastritis Esophagitis Relaxed pylorus Internal hemorrhoids Procedure & Operative Findings Date of Procedure 10/24/18 Procedure Performed/Findings EGD with bx Colon with bx Anesthesia Type IV sedation by CAREER COACH Estimated Blood Loss Estimated blood loss (mL): scant Specimens/Packing Specimens Removed Antral bx GE jxn bx TI bx BRIE HALL DO Oct 24, 2018 11:57
--- NOTE | 2018-10-24 11:58 | Endoscopy Discharge Instruct ---
Endo Procedure/Findings Findings 1.: Gastritis 2.: Internal Hemorrhoids Discharge Instructions - Activity: You might feel a little sleepy until tomorrow. This is due to the medicine you received to relax you. Until tomorrow, you should: NOT drive a car, operate machinery or power tools. NOT drink any alcoholic beverages. NOT make any important decisions or sign importortant papers. Do not return to work until tomorrow, unless otherwise instructed. Resume previous activities tomorrow. Diet: Start by taking liquids. If you tolerate liquids, advance to solid food. make an appointment for one week Notify Physician - If you experience excessive bleeding, unusual abdominal pain, fever, or chest pain, contact your doctor immediately. Follow-Up: - I have received and understand the above instructions and will call my doctor if I have any further questions. Patient Signature Date Nurse Signature Other (Relationship) BRIE HALL DO Oct 24, 2018 11:58
[2018-10-24 12:05] VITALS: BP 103/55
--- NOTE | 2018-10-24 12:16 | Anesthesia-General Post-Op ---
MAC Patient Condition Mental Status/LOC: Same as Preop Cardiovascular: Satisfactory Nausea/Vomiting: Absent Respiratory: Satisfactory Pain: Controlled Complications: Absent Post Op Complications Complications None Follow Up Care/Instructions Patient Instructions None needed. Anesthesiology Discharge Order Discharge Order Patient is doing well, no complaints, stable vital signs, no apparent adverse anesthesia problems. No complications reported per nursing. DUSTIN TRUJILLO CRNA Oct 24, 2018 12:16
[2018-10-24 12:35] VITALS: BP 110/74
[2018-10-24 12:50] VITALS: BP 110/74
--- NOTE | 2018-10-25 02:27 | OPERATIVE REPORT ---
DATE OF SERVICE: 10/24/2018 PREOPERATIVE DIAGNOSES: Reflux and diarrhea. POSTOPERATIVE DIAGNOSES: 1. Gastritis. 2. Esophagitis. 3. Internal hemorrhoids. PROCEDURE: EGD with biopsy and colonoscopy with cold biopsy. SURGEON: Raimundo Varela DO EMPLOYEE'S REPRESENTATIVE: None. ANESTHESIA: IV sedation by the JOB FOREMAN. SPECIMEN: One biopsy from the stomach and one biopsy from the antrum and then one biopsy from the terminal ileum. BLOOD LOSS: Scant. FLUIDS: Per anesthesia. POSTOPERATIVE CONDITION: Stable. INDICATION FOR PROCEDURE: The patient is a 28-year-old female who has been having some reflux and gastritis and needed a workup as well as some chronic uncontrolled diarrhea needed a colonoscopy. FINDINGS: The patient had some gastritis and some mild esophagitis possibly a very small hiatal hernia and then she had some internal hemorrhoids, but nothing else seen in the colon. PROCEDURE NOTE: After informed consent was obtained, the patient was brought to the endoscopy suite, placed in the bed in left lateral decubitus position. First started with the EGD, placed the scope down the mouth through the esophagus and into the stomach, saw some mild gastritis, took a picture. Pushed in the duodenum, first and second portion of duodenum looked fine. Pulled back into the antrum, took a biopsy of the antrum. I retroflexed the scope, saw small hiatal hernia, but no other pathology. Pulled the scope into the GE junction, saw some mild esophagitis. Pulled the scope up the esophagus, did not see anything else at top of the esophagus and then pulled the scope out. Switched gloves, switched scopes and then started the colonoscopy. Went down below, inserted the scope, pushed all the way about 150 cm, able to get to the cecum, took a picture of appendiceal orifice, noted the ileocecal valve and then slowly withdrew the scope insufflating to look circumferentially at the castle looking at the cecum into the terminal ileum. I elected to do a biopsy in the terminal ileum, cold biopsy and then pulled up the ascending colon to the hepatic flexure, then down the transverse colon, splenic flexure, into the descending colon then down into the sigmoid and finally into the rectum, retroflexed the rectal vault, saw some minimal internal hemorrhoids, took a picture of this and then removed the scope. The patient tolerated procedure. She was recovered in the endoscopy suite. Job ID: [id number] DocumentID: [id number] Dictated Date: 10/24/2018 18:43:46 Supervisor Patching Date: 10/25/2018 02:26:27 Dictated By: RAIMUNDO VARELA DO
== END 2018-10-24 12:50 | disposition home or self-care (01) ==
LOC: ENDO 10:05
PROVIDERS: ATTEND Surgery
DX: K29.50 Unspecified chronic gastritis without bleeding (principal); K21.0 Gastro-esophageal reflux disease with esophagitis; K64.8 Other hemorrhoids; K52.3 Indeterminate colitis; Z80.3 Family history of malignant neoplasm of breast; Z87.891 Personal history of nicotine dependence; F41.9 Anxiety disorder, unspecified; E66.01 Morbid (severe) obesity due to excess calories; Z68.39 Body mass index [BMI] 39.0-39.9, adult
CPT/HCPCS: 84703

== ENCOUNTER 2019-08-09 10:08 | Emergency (ER) | payer OTHER ==
[~2019-08-09] VITALS: Ht 167.7 cm; Wt 113.6 kg
--- NOTE | 2019-08-09 10:16 | ED Cough/URI ---
General Stated Complaint: COUGH;CONGESTION Source: patient Exam Limitations: no limitations History of Present Illness Date Seen by Provider: Aug 09, 2019 Time Seen by Provider: 10:16 Initial Comments 29-year-old female presents with cough and congestion. Patient reports that she's been coughing up a lot of mucus over the last couple days. That now her and daughter have similar symptoms. Patient presents today because she wants to make sure she doesn't have pneumonia. She doesn't report any fevers, nausea, vomiting, chest pain, diarrhea. Patient does have some generalized malaise. Patient reports a cough started about a week ago. Allergies and Home Medications Allergies Coded Allergies: No Known Drug Allergies (Unverified , 12/12/16) Home Medications Benzonatate 100 Mg Capsule, 100 MG PO Q8H PRN for COUGH Prescribed by: REBECCA MARINA on 08/09/19 1142 Ondansetron 4 Mg Tab.rapdis, 4 MG PO Q6H PRN for NAUSEA/VOMITING Prescribed by: REBECCA MARINA on 08/09/19 1142 Patient Home Medication List Home Medication List Reviewed: Yes Review of Systems Review of Systems Constitutional: malaise EENTM: nose congestion; No ear pain, No throat pain Respiratory: cough, phlegm; No short of breath Cardiovascular: No chest pain Gastrointestinal: No abdominal pain, No diarrhea, No nausea, No vomiting Genitourinary: no symptoms reported Musculoskeletal: no symptoms reported Skin: no symptoms reported Psychiatric/Neurological: No Symptoms Reported Hematologic/Lymphatic: No Symptoms Reported Past Bvhikzt-Imqqzr-Fubclu Hx Past Med/Social Hx: Reviewed Nursing Past Med/Soc Hx Patient Social History Type Used: Cigarettes Former Smoker, Quit: Dec 03, 2016 2nd Hand Smoke Exposure: Yes Recent Hopitalizations: No Immunizations Up To Date Tetanus Booster (TDap): Unknown PED Vaccines UTD: Yes Seasonal Allergies Seasonal Allergies: No Past Medical History Surgeries: Yes Section, Gallbladder Respiratory: No Asthma Cardiac: No Neurological: No Reproductive Disorders: Yes Female Reproductive Disorders: Menstrual Problems Genitourinary: No Gastrointestinal: Yes Gastroesophageal Reflux, Irritable Bowel Musculoskeletal: No (chronic chest spasms) Endocrine: Yes ("can't regulate thyroid") HEENT: No Cancer: No Psychosocial: No Integumentary: No Blood Disorders: No Physical Exam Vital Signs - First Documented 2/5/20 10:14 Temp 37.0 Pulse 92 Resp 20 B/P (MAP) 128/86 (100) Pulse Ox 98 O2 Delivery Room Air Capillary Refill : Height: 5'6.00" Weight: 245lbs. 0.0oz. 111.550765kb; 39.5 BMI Method:Stated General Appearance: WD/WN, no apparent distress Eyes: Bilateral Eye Normal Inspection HEENT: normal ENT inspection Neck: full range of motion, supple Respiratory: lungs clear, normal breath sounds; No no respiratory distress, No decreased breath sounds Cardiovascular: normal peripheral pulses, regular rate, rhythm Gastrointestinal: non tender, soft Extremities: normal range of motion, non-tender Neurologic/Psychiatric: alert, normal mood/affect, oriented x 3 Skin: normal color, warm/dry Progress/Results/Core Measures Suspected Sepsis SIRS Temperature: Pulse: Respiratory Rate: Blood Pressure / Mean: Results/Orders My Orders Orders - MARINA,REBECCA L DO Chest Pa/Lat (2 View) (08/09/19 10:22) Benzonatate Capsule (Tessalon Perles) (08/09/19 10:30) Vital Signs/I&O 08/09/19 10:14 Temp 37.0 Pulse 92 Resp 20 B/P (MAP) 128/86 (100) Pulse Ox 98 O2 Delivery Room Air Capillary Refill : Departure Impression Primary Impression: Influenza-like symptoms Additional Impression: Bronchitis Disposition: 01 HOME, SELF-CARE Condition: Stable Departure-Patient Inst. Referrals: [facility]/ (PCP) Primary Care Physician NATALIE WATT APRN (Family) Primary Care Physician Patient Instructions: Viral Upper Respiratory Infection, Adult (DC), Flu, Adult (DC) Add. Discharge Instructions: Emergency department focuses on treating and ruling out life-threatening diseases. Whenever possible, a diagnosis is given. However, most patients are given an impression based on their history, physical exam, and workup during your brief time in the ER. Information about probable diagnosis and other educational material has been provided. Please take the time to read and understand this information. It is very important that you follow up with a physician as discussed during the visit today. Failure to adhere to your follow-up instructions may lead to severe disability, injury, or so please make sure to keep your appointments or obtain one as requested. Please keep in mind the emergency department is not designed to your primary care or "family doctor" and nonurgent issues are best e valuated by an outpatient physician Scripts Benzonatate (TESSALON PERLES) 100 Mg Capsule 100 MG PO Q8H PRN for COUGH, #14 CAP Prov: REBECCA MARINA DO 08/09/19 Ondansetron (Ondansetron Odt) 4 Mg Tab.rapdis 4 MG PO Q6H PRN for NAUSEA/VOMITING, #20 TAB Prov: REBECCA MARINA DO 08/09/19 REBECCA MARINA DO Aug 09, 2019 10:16
[2019-08-09] MEDS ORDERED: BENZONATATE 100 MG (TESSALON) CAPSULE PO SCH (10:30)
--- NOTE | 2019-08-09 11:34 | Diagnostic Imaging Report ---
INDICATION: Cough and congestion. COMPARISON: 08/29/2018. FINDINGS: Frontal and lateral views of the chest demonstrate normal heart size and pulmonary vascularity. The lungs show minimal patchy alveolar opacities in the left lung base. Otherwise, lungs are clear. There is no large effusion or pneumothorax. The visualized osseous structures show no acute abnormalities. IMPRESSION: 1. Probable patchy left basilar atelectasis. Dictated by: Dictated on workstation # [id number]
[2019-08-09] MEDS ORDERED: ONDA4TAB11 PO (11:42)
[2019-08-09] MEDS ORDERED: BENZ100C18 PO (11:42)
[2019-08-09 11:47] VITALS: BP 128/86
== END 2019-08-09 11:47 | disposition home or self-care (01) ==
LOC: EDUNIT# 10:08 → ER 10:09
DX: R09.89 Other specified symptoms and signs involving the circulatory and respiratory systems (principal); J40 Bronchitis, not specified as acute or chronic; Z87.891 Personal history of nicotine dependence; Z87.09 Personal history of other diseases of the respiratory system
CPT/HCPCS: 71046

== ENCOUNTER 2019-08-17 01:16 | Emergency (ER) | payer OTHER ==
[~2019-08-17] VITALS: Ht 167.7 cm; Wt 113.6 kg
[~2019-08-17 01:16] MED LIST changes: +BENZ100C18 PO; +ONDA4TAB11 PO
[2019-08-17 02:06] LABS: BASOPHILS % (AUTO) 0 % (0-10); EOSINOPHILS # (AUTO) 0.6 10^3/uL (0.0-0.3); EOSINOPHILS % (AUTO) 4 % (0-10); HEMATOCRIT 42 % (35-52); HEMOGLOBIN 14.3 G/DL (11.5-16.0); LYMPHOCYTES # (AUTO) 4.6 X 10^3 (1.0-4.0); LYMPHOCYTES % (AUTO) 32 % (12-44); MEAN CORPUSCULAR HEMOGLOBIN 29 PG (25-34); MEAN CORPUSCULAR HGB CONC 34 G/DL (32-36); MEAN CORPUSCULAR VOLUME 87 FL (80-99); MEAN PLATELET VOLUME 10.2 FL (7.4-10.4); MONOCYTES # (AUTO) 0.7 X 10^3 (0.0-1.0); MONOCYTES % (AUTO) 5 % (0-12); NEUTROPHILS # (AUTO) 8.4 X 10^3 (1.8-7.8); NEUTROPHILS % (AUTO) 59 % (42-75); PLATELET COUNT 342 10^3/uL (130-400); RED CELL DISTRIBUTION WIDTH 13.1 % (10.0-14.5); WHITE BLOOD COUNT 14.3 10^3/uL (4.3-11.0)
--- NOTE | 2019-08-17 02:06 | ED Cough/URI ---
General Chief Complaint: Cough/Cold/Flu Symptoms Stated Complaint: VOMITING BLOOD,DIZZY,COLD SENSATION IN CHEST Source: patient Exam Limitations: no limitations History of Present Illness Date Seen by Provider: Aug 17, 2019 Time Seen by Provider: 01:53 Initial Comments Here with report of cough and cold symptoms over the last few weeks but worse over the last week. Has been cough and states that she has coughed up a little blood. Has had intermittent fevers. Overall does not feel well and ksst-otd-hwmjban therapies are not helping. She does not smoke but does live with smokers. Timing/Duration: week, getting worse Severity/Quality: moderate, productive cough, blood streaked sputum Prior Episodes/Possible Cause: occasional episodes Modifying Factors: Worse With Activity, Worse With Coughing; Improves With Rest Associated Symptoms: cough, nasal congestion, nasal drainage, shortness of breath, sore throat, wheezing Allergies and Home Medications Allergies Coded Allergies: No Known Drug Allergies (Unverified , 12/12/16) Home Medications Benzonatate 100 Mg Capsule, 100 MG PO Q8H PRN for COUGH Prescribed by: REBECCA MARINA on 08/09/19 1142 Ondansetron 4 Mg Tab.rapdis, 4 MG PO Q6H PRN for NAUSEA/VOMITING Prescribed by: REBECCA MARINA on 08/09/19 1142 Patient Home Medication List Home Medication List Reviewed: Yes Review of Systems Review of Systems Constitutional: see HPI, fever; No weakness EENTM: see HPI Respiratory: see HPI Cardiovascular: no symptoms reported Gastrointestinal: no symptoms reported Genitourinary: no symptoms reported Musculoskeletal: no symptoms reported Skin: no symptoms reported Psychiatric/Neurological: No Symptoms Reported Past Lkizpur-Xqghzo-Sdsfyf Hx Past Med/Social Hx: Reviewed Nursing Past Med/Soc Hx Patient Social History Alcohol Use: Occasionally Uses Recreational Drug Use: No Smoking Status: Former Smoker Type Used: Cigarettes Former Smoker, Quit: Dec 03, 2016 2nd Hand Smoke Exposure: Yes Recent Foreign Travel: No Contact w/Someone Who Travel: No Recent Hopitalizations: No Immunizations Up To Date Tetanus Booster (TDap): Unknown PED Vaccines UTD: Yes Seasonal Allergies Seasonal Allergies: No Past Medical History Surgeries: Yes Section, Gallbladder Respiratory: No Asthma Cardiac: No Neurological: No Reproductive Disorders: Yes Female Reproductive Disorders: Menstrual Problems Genitourinary: No Gastrointestinal: Yes Gastroesophageal Reflux, Irritable Bowel Musculoskeletal: No (chronic chest spasms) Endocrine: Yes ("can't regulate thyroid") HEENT: No Cancer: No Psychosocial: No Integumentary: No Blood Disorders: No Family Medical History Reviewed Nursing Family Hx No Pertinent Family Hx Physical Exam Vital Signs - First Documented 08/17/19 08/17/19 01:36 02:10 Temp 37.4 Pulse 80 Resp 20 B/P (MAP) 124/82 (96) Pulse Ox 98 O2 Delivery Room Air Capillary Refill : Height: 5'6.00" Weight: 245lbs. 0.0oz. 111.235452vv; 40.00 BMI Method:Stated General Appearance: WD/WN, no apparent distress HEENT: PERRL/EOMI, pharyngeal erythema, other (nasal congestion) Neck: full range of motion, supple Respiratory: wheezing (few scattered), other (coarse with cough) Cardiovascular: regular rate, rhythm, no murmur Gastrointestinal: non tender, soft Extremities: non-tender, normal inspection Neurologic/Psychiatric: alert, oriented x 3 Skin: normal color, warm/dry Progress/Results/Core Measures Suspected Sepsis SIRS Temperature: Pulse: Respiratory Rate: Laboratory Tests 08/17/19 01:55: White Blood Count 14.3H Blood Pressure / Mean: Laboratory Tests 08/17/19 01:55: Creatinine 0.70, Platelet Count 342, Total Bilirubin 0.2 Results/Orders Lab Results Laboratory Tests Test 08/17/19 01:55 Range/Units White Blood Count 14.3 H 4.3-11.0 10^3/uL Red Blood Count 4.87 4.35-5.85 10^6/uL Hemoglobin 14.3 11.5-16.0 G/DL Hematocrit 42 35-52 % Mean Corpuscular Volume 87 80-99 FL Mean Corpuscular Hemoglobin 29 25-34 PG Mean Corpuscular Hemoglobin Concent 34 32-36 G/DL Red Cell Distribution Width 13.1 10.0-14.5 % Platelet Count 342 130-400 10^3/uL Mean Platelet Volume 10.2 7.4-10.4 FL Neutrophils (%) (Auto) 59 42-75 % Lymphocytes (%) (Auto) 32 12-44 % Monocytes (%) (Auto) 5 0-12 % Eosinophils (%) (Auto) 4 0-10 % Basophils (%) (Auto) 0 0-10 % Neutrophils # (Auto) 8.4 H 1.8-7.8 X 10^3 Lymphocytes # (Auto) 4.6 H 1.0-4.0 X 10^3 Monocytes # (Auto) 0.7 0.0-1.0 X 10^3 Eosinophils # (Auto) 0.6 H 0.0-0.3 10^3/uL Basophils # (Auto) 0.0 0.0-0.1 10^3/uL Neutrophils % (Manual) 65 % Lymphocytes % (Manual) 27 % Monocytes % (Manual) 6 % Eosinophils % (Manual) 0 % Basophils % (Manual) 0 % Band Neutrophils 0 % Reactive Lymphocytes 2 % Toxic Granulation 1+ Blood Morphology Comment NORMAL Sodium Level 137 135-145 MMOL/L Potassium Level 3.5 L 3.6-5.0 MMOL/L Chloride Level 109 H 98-107 MMOL/L Carbon Dioxide Level 19 L 21-32 MMOL/L Anion Gap 9 5-14 MMOL/L Blood Urea Nitrogen 18 7-18 MG/DL Creatinine 0.70 0.60-1.30 MG/DL Estimat Glomerular Filtration Rate > 60 BUN/Creatinine Ratio 26 Glucose Level 101 70-105 MG/DL Calcium Level 9.1 8.5-10.1 MG/DL Corrected Calcium 8.9 8.5-10.1 MG/DL Total Bilirubin 0.2 0.1-1.0 MG/DL Aspartate Amino Transf (AST/SGOT) 20 5-34 U/L Alanine Aminotransferase (ALT/SGPT) 32 0-55 U/L Alkaline Phosphatase 61 40-136 U/L C-Reactive Protein High Sensitivity 1.16 H 0.00-0.50 MG/DL Total Protein 7.7 6.4-8.2 GM/DL Albumin 4.2 3.2-4.5 GM/DL Micro Results Microbiology 08/17/19 Influenza Types A,B Antigen ([facility]A) - Final, Complete My Orders Orders - MANAS SEVERINO MD Chest Pa/Lat (2 View) (08/17/19 01:52) Cbc With Automated Diff (08/17/19 01:52) Comprehensive Metabolic Panel (08/17/19 01:52) Hs C Reactive Protein (08/17/19 01:52) Influenza A And B Antigens (08/17/19 01:52) Urine Bedside (08/17/19 01:52) Albuterol/Ipra Inhalation Soln (Duoneb I (08/17/19 02:15) Svn Small Volume Nebulizer (08/17/19 02:01) Manual Differential (08/17/19 01:55) Sputum Culture (08/17/19 02:44) Medications Given in ED Current Medications Medications Dose Ordered Sig/Betzy Route Start Time Stop Time Status Last Admin Dose Admin Albuterol/ Ipratropium 3 ml ONCE ONCE INH 08/17/19 02:15 08/17/19 02:16 DC 08/17/19 02:09 3 ML Vital Signs/I&O 08/17/19 08/17/19 08/17/19 01:36 02:10 02:24 Temp 37.4 Pulse 80 Resp 20 B/P (MAP) 124/82 (96) Pulse Ox 98 98 O2 Delivery Room Air Room Air Capillary Refill : Progress Note : Progress Note Seen and evaluated. Labs, chest x-ray, UCG and duo neb ordered. Influenza screen ordered. Monitor patient. 0315: Chest x-ray complete. Labs reviewed. Concerns about pneumonia. We will initiate outpatient treatment with Omnicef 300 mg by mouth as well as azithromycin 500 mg by mouth. Discharged home with return precautions. Patient verbalize understanding instructions and agreement with plan. Albuterol metered-dose inhaler given and teaching done by RT. Diagnostic Imaging Diagonstic Imaging: Xray Plain Films/CT/US/NM/MRI: chest Comments Left lower lobe infiltrate versus atelectasis Reviewed: Reviewed by Me Departure Impression Primary Impression: Left lower lobe pneumonia Qualified Codes: J18.1 - Lobar pneumonia, unspecified organism Disposition: HOME, SELF-CARE Condition: Improved Departure-Patient Inst. Decision time for Depature: 03:16 Referrals: [facility] (PCP) Primary Care Physician NATALIE WATT APRN (Family) Primary Care Physician Patient Instructions: Pneumonia, Adult (DC) Add. Discharge Instructions: All discharge instructions reviewed with patient and/or family. Voiced understanding. Take medications as directed. Follow-up with your doctor for recheck and further evaluation within a few days. Return for worse pain, fever, vomiting, weakness, breathing problems or other concerns as needed. You may use her albuterol inhaler 2 puffs every 4 hours as needed for cough and wheezing. Scripts Azithromycin (Azithromycin) 250 Mg Tablet 250 MG PO DAILY, #4 TAB 0 Refills Prov: MANAS SEVERINO MD 08/17/19 Cefdinir (Cefdinir) 300 Mg Capsule 300 MG PO BID, #19 CAP 0 Refills Prov: MANAS SEVERINO MD 08/17/19 MANAS SEVERINO MD Aug 17, 2019 02:06
[2019-08-17] MEDS ORDERED: RT-ALBUTEROL/IPRATROPIUM 3 ML (DUONEB) VIAL INH ONE (02:15)
[2019-08-17 02:23] LABS: BAND NEUTROPHILS 0 %; BASOPHILS % (MANUAL) 0 %; EOSINOPHILS % (MANUAL) 0 %; LYMPHOCYTES % (MANUAL) 27 %; MONOCYTES % (MANUAL) 6 %; NEUTROPHILS % (MANUAL) 65 %; RBC MORPH NORMAL; TOXIC GRANULATION/VACUOLAZATIO 1+
[2019-08-17 02:24] LABS: REACTIVE LYMPHOCYTES 2 %
[2019-08-17 02:29] LABS: ALANINE AMINOTRANSFERASE 32 U/L (0-55); ALBUMIN 4.2 GM/DL (3.2-4.5); ALKALINE PHOSPHATASE 61 U/L (40-136); BILIRUBIN,TOTAL 0.2 MG/DL (0.1-1.0); BUN/CREATININE RATIO 26; CALCIUM 9.1 MG/DL (8.5-10.1); CARBON DIOXIDE 19 MMOL/L (21-32); CHLORIDE 109 MMOL/L (98-107); GFR ESTIMATED > 60; GLUCOSE 101 MG/DL (70-105); POTASSIUM 3.5 MMOL/L (3.6-5.0); SODIUM 137 MMOL/L (135-145); TOTAL PROTEIN 7.7 GM/DL (6.4-8.2)
[2019-08-17] MEDS ORDERED: AZITHROMYCIN 250 MG TAB (ZITHROMAX) PO STA (03:13)
[2019-08-17] MEDS ORDERED: RX-ALBUTEROL INHALER (PROAIR) 8.5 GM IH PRN (03:15)
[2019-08-17] MEDS ORDERED: CEFDINIR 300 MG (OMNICEF) CAP PO ONE (03:15)
[2019-08-17] MEDS ORDERED: CEFD300C3 PO (03:17)
[2019-08-17] MEDS ORDERED: AZIT250T12 PO (03:17)
[2019-08-17 03:25] VITALS: BP 116/77
--- NOTE | 2019-08-17 06:59 | Diagnostic Imaging Report ---
INDICATION: Cough for 2 weeks, worsening recently. COMPARISON STUDY: Chest from August the . FINDINGS: A frontal view of the chest demonstrates some improvement of the left basilar infiltrate or atelectasis. Heart size is normal. Perihilar infiltrates are stable. IMPRESSION: There are stable perihilar infiltrates with improvement of the infiltrates or atelectasis in the left lung base. Dictated by: Dictated on workstation # [id number]
== END 2019-08-17 03:26 | disposition home or self-care (01) ==
LOC: EDUNIT# 01:16 → ER 01:18
DX: J18.1 Lobar pneumonia, unspecified organism (principal); J45.909 Unspecified asthma, uncomplicated; Z87.09 Personal history of other diseases of the respiratory system
CPT/HCPCS: 36415; 71046; 80053; 84703; 85007; 85027; 86141; 87070; 87205; 87804; 94640

== ENCOUNTER → 2019-09-04 | Outpatient (CLI) | payer OTHER ==
[~2019-09-04] MED LIST changes: +CEFD300C3 PO; -CLAR-19 PO; +CLAR-31 PO; +GADOBUTROL 10 MMOL/10 ML (GADAVIST) VIAL IV ONE; +IOHEXOL 300 MG/ML 50 ML (OMNIPAQUE 300) VIAL IV ONE
--- NOTE | 2019-09-04 11:09 | Diagnostic Imaging Report ---
PROCEDURE: MR imaging of the brain with and without contrast. TECHNIQUE: Multiplanar, multisequence MR imaging of the brain was performed with and without contrast. INDICATION: Visual disturbances. COMPARISON: There are no prior studies available for comparison. FINDINGS: There is no mass, shift to the midline, or hemorrhage to suggest an acute intracranial abnormality. There is no abnormal enhancement on the post contrast series to indicate a neoplastic or infectious process either. Furthermore, there is no abnormal signal arising from the brain on the diffusion series to indicate an area of acute ischemia. There is a small area of slightly increased density adjacent to the lateral margin of the left lateral ventricle on the FLAIR series. This finding is nonspecific but may be secondary to encephalomalacia from microvascular ischemia. It would be much less likely that this is related to demyelinating disease. The ventricles themselves are not abnormally dilated. There is a persistent septum pellucidum. This is a developmental variant. The sella is not enlarged and the expected carotid flow voids are evident bilaterally. The orbits are symmetrical and within normal limits. The optic chiasm is undisturbed and the infundibulum is midline. The sinuses are generally clear. The seventh and eighth nerve complexes show no abnormality. IMPRESSION: 1. There is no evidence for an acute intracranial abnormality. 2. There is no abnormal enhancement to indicate a neoplastic or infectious process either. 3. The small area of increased signal in the periventricular white matter adjacent to the left lateral ventricle on the FLAIR series is nonspecific. This finding could be secondary to encephalomalacia from microvascular ischemia. Demyelination disease would be a much less likely consideration. 4. There is a persistent septum pellucidum. This is a developmental variant. Dictated by: Dictated on workstation # [id number]
== END ==
LOC: RAD 09:51
PROVIDERS: ATTEND Nurse Practitioner Primary Care
DX: S06.0X0S Concussion without loss of consciousness, sequela (principal); H53.9 Unspecified visual disturbance
CPT/HCPCS: 70553

== ENCOUNTER → 2019-09-04 | Outpatient (CLI) | payer OTHER ==
[~2019-09-04] MED LIST changes: -GADOBUTROL 10 MMOL/10 ML (GADAVIST) VIAL IV ONE
--- NOTE | 2019-09-04 14:50 | Diagnostic Imaging Report ---
EXAMINATION: Hysterosalpingogram INDICATION: Infertility Fluoroscopic assistance was provided for Dr. Edith Franks during her hysterosalpingogram procedure. 34 seconds of fluoroscopy time was utilized. The spooler operator automatic film was unremarkable. Following aseptic preparation of the skin a Hanna catheter is advanced into the endometrial canal and a balloon was dilated. Subsequently contrast was infused. The endometrial lining is unremarkable. Both fallopian tubes were visualized. The fallopian tubes are normal in caliber and there did appear to be spill from each fallopian tube particularly on the right. The patient tolerated the procedure well and was dismissed in good condition. IMPRESSION: There are patent fallopian tubes bilaterally. Dictated by: Dictated on workstation # [id number]
== END ==
LOC: RAD 09:49
PROVIDERS: ATTEND Obstetrics & Gynecology
DX: N97.1 Female infertility of tubal origin (principal); Z98.891 History of uterine scar from previous surgery
CPT/HCPCS: 58340; 74740

== ENCOUNTER → 2020-01-29 | Outpatient (CLI) | payer OTHER ==
[~2020-01-29] MED LIST changes: -IOHEXOL 300 MG/ML 50 ML (OMNIPAQUE 300) VIAL IV ONE
--- NOTE | 2020-01-29 16:59 | Diagnostic Imaging Report ---
INDICATION: patient, survey. TECHNIQUE: Multiple Real-time grayscale images were obtained over the gravid uterus. COMPARISON: None during this . FINDINGS: A single live intrauterine fetus is seen measuring 18 weeks 5 days by composite measurements. The sonographic EDC is 06/26/2020. The fetus is in transverse presentation with the head on the maternal right. The amniotic fluid is qualitatively normal. The placenta is posterior and appears low lying, partially overlying the os. This may change in later . The heart rate is 142 BPM. The survey was limited; however, the kidneys, bladder, and stomach were well seen. The intracranial structures, three-vessel cord, and four-chamber heart view were not well seen. The spine and cord insertion were normal. The facial structures were not well seen. The cervical length was 4.14 cm. Biometrical measurements are as follows: Biparietal 4.17 cm, age 18 weeks 5 days. Head circumference 15.77 cm, age 18 weeks 5 days. Abdominal circumference 13.11 cm, age 18 weeks 5 days. Femur length 2.76 cm, age 18 weeks 4 days. Sonographic estimate age: 18 weeks 5 days. Sonographic estimated date of delivery: 06/26/2020. Estimated Weight: 246 gm (+/- 36 gm). LMP percentile: 53%. heart rate: 142 beats per minute. number: 1 of 1. IMPRESSION: Single live intrauterine fetus measuring at 18 weeks 5 days in size. The placenta is posterior and low lying, partially covering the os. This may change in later but followup is recommended. survey showed no detectable abnormalities but there was limitation in that the intracranial structures, four-chamber heart view, and three-vessel cord were not well seen nor were the facial structures. Followup is suggested. Dictated by: Dictated on workstation # [id number]
== END ==
LOC: RAD 13:48
PROVIDERS: ATTEND Obstetrics & Gynecology
DX: O44.42 Low lying placenta NOS or without hemorrhage, second trimester (principal); O34.219 Maternal care for unspecified type scar from previous cesarean delivery; Z3A.18 18 weeks gestation of pregnancy; Z87.59 Personal history of other complications of pregnancy, childbirth and the puerperium
CPT/HCPCS: 76805

== ENCOUNTER 2020-02-10 16:41 | Emergency (ER) | payer OTHER ==
[~2020-02-10] VITALS: Ht 168 cm; Wt 113.6 kg
[2020-02-10 17:36] LABS: BASOPHILS % (AUTO) 0 % (0-10); BILIRUBIN,URINE NEGATIVE (NEGATIVE); CLARITY,URINE CLEAR; COLOR,URINE YELLOW; EOSINOPHILS # (AUTO) 0.2 10^3/uL (0.0-0.3); EOSINOPHILS % (AUTO) 2 % (0-10); GLUCOSE, URINE (UA) NEGATIVE (NEGATIVE); HEMATOCRIT 41 % (35-52); HEMOGLOBIN 14.4 G/DL (11.5-16.0); KETONES,URINE 3+ (NEGATIVE); LEUKOCYTE ESTERASE ,URINE NEGATIVE (NEGATIVE); LYMPHOCYTES # (AUTO) 3.5 X 10^3 (1.0-4.0); LYMPHOCYTES % (AUTO) 26 % (12-44); MEAN CORPUSCULAR HEMOGLOBIN 30 PG (25-34); MEAN CORPUSCULAR HGB CONC 35 G/DL (32-36); MEAN CORPUSCULAR VOLUME 86 FL (80-99); MEAN PLATELET VOLUME 11.1 FL (7.4-10.4); MONOCYTES # (AUTO) 0.6 X 10^3 (0.0-1.0); MONOCYTES % (AUTO) 5 % (0-12); NEUTROPHILS # (AUTO) 9.1 X 10^3 (1.8-7.8); NEUTROPHILS % (AUTO) 68 % (42-75); NITRITE,URINE NEGATIVE (NEGATIVE); PLATELET COUNT 308 10^3/uL (130-400); PROTEIN,URINE NEGATIVE (NEGATIVE); RED CELL DISTRIBUTION WIDTH 13.3 % (10.0-14.5); WHITE BLOOD COUNT 13.4 10^3/uL (4.3-11.0)
--- NOTE | 2020-02-10 17:43 | ED General ---
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 She also complains of some pelvic pressure which has been ongoing for a week. She denies any cough, fever, or chest pain. She had a "funny feeling" in her right chest yesterday. She does appear to be mildly hyperventilating on exam. Her works at [employer] where there was recently a COVID-19 outbreak. He has not had any symptoms of illness except for muscle aching which he attributes to intense physical labor. heart tones on exam are in the 140s. Vital signs are unremarkable and oxygen saturations are in the 97-99 percent range on room air. Patient has a remote history of hyperventilation and has a history of anxiety for which she receives counseling. She has what sounds like physiologic whitish to clearish vaginal discharge but no discharge with odor or color to it. She denies pain with intercourse. She denies any lower extremity symptoms, travel, or smoking. (OG LANE MD) Allergies and Home Medications Allergies Coded Allergies: No Known Drug Allergies (Unverified , 12/12/16) Home Medications Azithromycin 250 Mg Tablet, 250 MG PO DAILY Prescribed by: MANAS SEVERINO on 08/17/19316 Benzonatate 100 Mg Capsule, 100 MG PO Q8H PRN for COUGH Prescribed by: REBECCA MARINA on 08/09/19 1142 Cefdinir 300 Mg Capsule, 300 MG PO BID Prescribed by: MANAS SEVERINO on 08/17/19316 Hydroxyzine HCl 25 Mg Tablet, 25 MG PO Q6H PRN for ANXIETY Prescribed by: CHIDI SCHMIDT on 02/10/201910 Ondansetron 4 Mg Tab.rapdis, 4 MG PO Q6H PRN for NAUSEA/VOMITING Prescribed by: REBECCA MARINA on 08/09/19 1142 Patient Home Medication List Home Medication List Reviewed: Yes (OG LANE MD) Home Medication List Reviewed: Yes (CHIDI SCHMIDT) Review of Systems Review of Systems Constitutional: no symptoms reported EENTM: no symptoms reported Respiratory: see HPI Cardiovascular: no symptoms reported Gastrointestinal: no symptoms reported Genitourinary: see HPI : Yes Musculoskeletal: no symptoms reported Skin: no symptoms reported Psychiatric/Neurological: See HPI Hematologic/Lymphatic: No Symptoms Reported Immunological/Allergic: no symptoms reported (OG LANE MD) Past Eoucxoh-Dsiotz-Zaeofk Hx Past Med/Social Hx: Reviewed Nursing Past Med/Soc Hx (OG LANE MD) Patient Social History Alcohol Use: Denies Use Recreational Drug Use: No Smoking Status: Never a Smoker Type Used: Cigarettes Former Smoker, Quit: Dec 03, 2016 2nd Hand Smoke Exposure: Yes Recent Foreign Travel: No Contact w/Someone Who Travel: No Recent Infectious Disease Expo: No Recent Hopitalizations: No (OG LANE MD) Immunizations Up To Date Tetanus Booster (TDap): Unknown PED Vaccines UTD: Yes (OG LANE MD) Seasonal Allergies Seasonal Allergies: No (OG LANE MD) Past Medical History Surgeries: Yes Section, Gallbladder Respiratory: Yes Asthma Cardiac: No Neurological: No : Yes Expected Date of Delivery: Jun 28, 2020 Reproductive Disorders: Yes Female Reproductive Disorders: Menstrual Problems Genitourinary: No Gastrointestinal: Yes Gastroesophageal Reflux, Irritable Bowel Musculoskeletal: No (chronic chest spasms) Endocrine: Yes ("can't regulate thyroid" [facility]) HEENT: No Cancer: No Psychosocial: No Integumentary: No Blood Disorders: No (OG LANE MD) Family Medical History No Pertinent Family Hx (OG LANE MD) Physical Exam Vital Signs Vital Signs - First Documented 02/10/20 16:47 Temp 36.0 Pulse 96 Resp 22 B/P (MAP) 111/64 (80) Pulse Ox 99 O2 Delivery Room Air (CHIDI SCHMIDT) Vital Signs Capillary Refill : Less Than 3 Seconds ([address] L[address] MD) Height, Weight, BMI Height: 5'6.00" Weight: 245lbs. 0.0oz. 111.312940lx; 40.00 BMI Method:Stated General Appearance: WD/WN, Anxious HEENT: Normal ENT Inspection Neck: Normal Inspection Respiratory: Lungs Clear, Normal Breath Sounds, No Accessory Muscle Use, No Respiratory Distress, Other (appears slightly dyspneic and/or hyperventilating) Cardiovascular: Regular Rate, Rhythm, No Edema, No Gallop, No Murmur Gastrointestinal: Normal Bowel Sounds, Non Tender, Soft Extremity: Normal Inspection, Non Tender, No Calf Tenderness, No Pedal Edema, Other (negative Noa) Neurologic/Psychiatric: Alert, Oriented x3, No Motor/Sensory Deficits, Normal Mood/Affect Skin: Normal Color, Warm/Dry (OG LANE MD) Progress/Results/Core Measures Suspected Sepsis Recent Fever Within 48 Hours: No Infection Criteria Present: None New/Unexplained Altered Menta: No Sepsis Screen: No Definite Risk SIRS Temperature: Pulse: 96 Respiratory Rate: 22 Laboratory Tests 02/10/20 16:50: White Blood Count 13.4H Blood Pressure 111 /64 Mean: 80 Laboratory Tests 02/10/20 16:50: Platelet Count 308 02/10/20 18:04: (OG LANE MD) Results/Orders Lab Results Laboratory Tests Test 02/10/20 16:50 02/10/20 18:04 Range/Units White Blood Count 13.4 H 4.3-11.0 10^3/uL Red Blood Count 4.75 4.35-5.85 10^6/uL Hemoglobin 14.4 11.5-16.0 G/DL Hematocrit 41 35-52 % Mean Corpuscular Volume 86 80-99 FL Mean Corpuscular Hemoglobin 30 25-34 PG Mean Corpuscular Hemoglobin Concent 35 32-36 G/DL Red Cell Distribution Width 13.3 10.0-14.5 % Platelet Count 308 130-400 10^3/uL Mean Platelet Volume 11.1 H 7.4-10.4 FL Neutrophils (%) (Auto) 68 42-75 % Lymphocytes (%) (Auto) 26 12-44 % Monocytes (%) (Auto) 5 0-12 % Eosinophils (%) (Auto) 2 0-10 % Basophils (%) (Auto) 0 0-10 % Neutrophils # (Auto) 9.1 H 1.8-7.8 X 10^3 Lymphocytes # (Auto) 3.5 1.0-4.0 X 10^3 Monocytes # (Auto) 0.6 0.0-1.0 X 10^3 Eosinophils # (Auto) 0.2 0.0-0.3 10^3/uL Basophils # (Auto) 0.0 0.0-0.1 10^3/uL Urine Color YELLOW Urine Clarity CLEAR Urine pH 7.0 5-9 Urine Specific [place] 1.015 L 1.016-1.022 Urine Protein NEGATIVE NEGATIVE Urine Glucose (UA) NEGATIVE NEGATIVE Urine Ketones 3+ H NEGATIVE Urine Nitrite NEGATIVE NEGATIVE Urine Bilirubin NEGATIVE NEGATIVE Urine Urobilinogen 0.2 < = 1.0 MG/DL Urine Leukocyte Esterase NEGATIVE NEGATIVE Urine RBC (Auto) NEGATIVE NEGATIVE Urine RBC NONE /HPF Urine WBC NONE /HPF Urine Squamous Epithelial Cells 0-2 /HPF Urine Crystals PRESENT H /LPF Urine Amorphous Sediment FEW RUPINDER URATES H /LPF Urine Bacteria NEGATIVE /HPF Urine Casts NONE /LPF Urine Mucus NEGATIVE /LPF Urine Culture Indicated NO Sodium Level 137 135-145 MMOL/L Potassium Level 3.5 L 3.6-5.0 MMOL/L Chloride Level 109 H 98-107 MMOL/L Carbon Dioxide Level 16 L 21-32 MMOL/L Anion Gap 12 5-14 MMOL/L Blood Urea Nitrogen 8 7-18 MG/DL Creatinine 0.75 0.60-1.30 MG/DL Estimat Glomerular Filtration Rate > 60 BUN/Creatinine Ratio 11 Glucose Level 94 70-105 MG/DL Calcium Level 8.8 8.5-10.1 MG/DL Corrected Calcium 9.2 8.5-10.1 MG/DL Magnesium Level 1.9 1.6-2.4 MG/DL Total Bilirubin 0.2 0.1-1.0 MG/DL Aspartate Amino Transf (AST/SGOT) 17 5-34 U/L Alanine Aminotransferase (ALT/SGPT) 19 0-55 U/L Alkaline Phosphatase 61 40-136 U/L Lactate Dehydrogenase 153 125-220 U/L C-Reactive Protein High Sensitivity 3.39 H 0.00-0.50 MG/DL Total Protein 6.9 6.4-8.2 GM/DL Albumin 3.5 3.2-4.5 GM/DL Procalcitonin 0.02 <0.10 NG/ML (CHIDI SCHMIDT) Vital Signs/I&O 02/10/20 16:47 Temp 36.0 Pulse 96 Resp 22 B/P (MAP) 111/64 (80) Pulse Ox 99 O2 Delivery Room Air (CHIDI SCHMIDT) Vital Signs/I&O Capillary Refill : Less Than 3 Seconds (OG LANE MD) Blood Pressure Mean: 80 Progress Note #1: Time: 17:43 Progress Note Patient was seen and examined. Labs and urinalysis are pending. Chest x-ray was obtained and it has been reviewed. Progress Note #2: Time: 18:17 Progress Note Respiratory status has improved and patient has calmed down. Her tachypnea/dyspnea has resolved. Chest x-ray was unremarkable. UA showed 3+ ketones and IV fluids were ordered. Care the patient is being transitioned to Dr. Schmidt at this time. (OG LANE MD) Progress Note #1: Progress Note Assumed care of the patient at shift change. I agree with the above documented history and physical exam as well as plan. IV fluids of been initiated urine ketones. She has demonstrated remarkable improvement in her initial complaints despite no intervention prior to initiating fluids. I suspect an anxiety attack be most likely source of her symptoms. An ABG was not initially drawn. She is complaining that the low pelvis pain is unlike any pain she has had from previous pregnancies. If it persists despite fluids then we would refer her on upstairs to the OB floor. Patient does have a history of PTSD, major depressive disorder and panic disorder. She says since she's been working to get her life straight however she has not had a panic attack and 7 years. Her first did result in a stillbirth because of oligohydramnios. She is not sure why that happened. No history of group B strep. Urinalysis and labs are largely unremarkable other than as noted above. Progress Note #2: Time: 19:09 Progress Note We discussed the case and options with the patient and she accepted hydroxyzine. She says she would prefer to go home at this point. We've encouraged her to follow up with Dr. Armenta as well as with her therapist at her earliest convenience. (CHIDI SCHMIDT) Diagnostic Imaging Diagonstic Imaging: Xray Plain Films/CT/US/NM/MRI: chest Comments Chest x-ray viewed by me and report reviewed. See report below: NAME: ALVIN TOBAR [facility] REC#: [id number] PT STATUS: REG ER : 1990 PHYSICIAN: OG LANE MD ADMIT DATE: 02/10/20/ER Draft Date of Exam:02/10/20 CHEST 1 VIEW, AP/PA ONLY INDICATION: Shortness of breath. COMPARISON: 08/17/2019. EXAMINATION: Single view of the chest was obtained. FINDINGS: Clear lungs, bilaterally. The heart is normal. There is no pneumothorax but osseous structures are age-appropriate. IMPRESSION: Negative chest. Dictated on workstation # [id number] Dict: 02/10/201739 Trans: 02/10/201742 [facility] [id number] Interpreted by: MARY MORRIS (OG LANE MD) Consults Consults : Consulting Physician: REBA LYONS MD Consults Notes Discussed the case with Dr. Armenta's partner, Dr. Lyons via phone. He is okay to take the patient upstairs for another liter of fluids or if she feels okay with just some hydroxyzine he is okay with letting her go home and follow up outpatient with Dr. Armenta. (CHIDI SCHMIDT) Departure Impression Primary Impression: Panic disorder [episodic paroxysmal anxiety] Disposition: 01 HOME, SELF-CARE Condition: Stable Departure-Patient Inst. Decision time for Depature: 19:09 (CHIDI SCHMIDT) Referrals: SHELLY ARMENTA DO (PCP) Primary Care Physician NATALIE WATT APRN (Family) Primary Care Physician Patient Instructions: Panic Disorder (DC) Add. Discharge Instructions: Please make follow-up appointment with your therapist. If you cannot get in with her in time Dr. Armenta may also be able to help you with your symptoms. At the first sign of a panic attack such as racing heart, narrowing vision, increased breathing and would like you to take a tablet of hydroxyzine, 25 mg and work on your breathing techniques. All discharge instructions reviewed with patient and/or family. Voiced understanding. Scripts Hydroxyzine HCl (Hydroxyzine HCl) 25 Mg Tablet 25 MG PO Q6H PRN for ANXIETY, #20 TAB 0 Refills Prov: CHIDI SCHMIDT 02/10/[address] Feb 10, 2020 17:43 CHIDI SCHMIDT Feb 10, 2020 18:29
[2020-02-10 17:58] LABS: AMORPHOUS SEDIMENT,UR FEW AMOR URATES /LPF; BACTERIA,URINE NEGATIVE /HPF; SQUAMOUS EPITHELIAL CELL,UR 0-2 /HPF
[2020-02-10] MEDS ORDERED: NS IV 1000 ML 1,000 ML IV SCH (18:00)
[2020-02-10 18:34] LABS: ALANINE AMINOTRANSFERASE 19 U/L (0-55); ALBUMIN 3.5 GM/DL (3.2-4.5); ALKALINE PHOSPHATASE 61 U/L (40-136); BILIRUBIN,TOTAL 0.2 MG/DL (0.1-1.0); BUN/CREATININE RATIO 11; CALCIUM 8.8 MG/DL (8.5-10.1); CARBON DIOXIDE 16 MMOL/L (21-32); CHLORIDE 109 MMOL/L (98-107); CREATININE SERUM 0.75 MG/DL (0.60-1.30); GFR ESTIMATED > 60; GLUCOSE 94 MG/DL (70-105); MAGNESIUM 1.9 MG/DL (1.6-2.4); POTASSIUM 3.5 MMOL/L (3.6-5.0); SODIUM 137 MMOL/L (135-145); TOTAL PROTEIN 6.9 GM/DL (6.4-8.2)
[2020-02-10] MEDS ORDERED: HYDR-700 PO (19:11)
[2020-02-10 19:15] VITALS: BP 108/62
== END 2020-02-10 19:16 | disposition home or self-care (01) ==
LOC: EDUNIT# 16:41 → ER 16:42
DX: O99.342 Other mental disorders complicating pregnancy, second trimester (principal); F41.0 Panic disorder [episodic paroxysmal anxiety]; Z3A.20 20 weeks gestation of pregnancy; Z87.891 Personal history of nicotine dependence; Z77.22 Contact with and (suspected) exposure to environmental tobacco smoke (acute) (chronic)
CPT/HCPCS: 36415; 71045; 80053; 81000; 83615; 83735; 84145; 85025; 86141